=== PATIENT | female | born 1955 | race Caucasian/White ===

== ENCOUNTER 2018-08-25 11:14 | Inpatient (IN) | payer OTHER ==
[~2018-08-25] VITALS: Ht 170.2 cm; Wt 85.6 kg
[2018-08-25 11:54] LABS: BASOPHILS ABSOLUTE AUTO 0.06 K/mm3 (0.00-0.23); BASOPHILS PERCENT AUTO 1 % (0-2); EOSINOPHILS PERCENT AUTO 1 % (0-6); Hematocrit 38.2 % (33.0-51.0); Hemoglobin 12.5 g/dL (11.5-16.0); IMMATURE GRAN ABSOLUTE AUTO 0.71 K/mm3 (0.00-0.10); IMMATURE GRAN PERCENT AUTO 6 % (0-1); LYMPHOCYTES ABSOLUTE AUTO 2.73 K/mm3 (0.84-5.20); LYMPHOCYTES PERCENT AUTO 24 % (21-46); MONOCYTES ABSOLUTE AUTO 0.71 K/mm3 (0.16-1.47); MONOCYTES PERCENT AUTO 6 % (4-13); Mean Corpuscular HGB 28.5 pg (26.0-34.0); Mean Corpuscular HGB Conc 32.7 g/dL (31.5-36.5); Mean Corpuscular Volume 87 fL (80-100); Mean Platelet Volume 8.7 fL (9.1-12.4); NEUTROPHILS ABSOLUTE AUTO 7.01 K/mm3 (1.96-9.15); NEUTROPHILS PERCENT AUTO 62 % (41-73); Platelet Count 418 K/mm3 (150-400); RDW Coefficient Variation 12.2 % (11.7-14.2); RDW Standard Deviation 39.3 fL (35.1-46.3); Red Blood Cell Count 4.38 M/mm3 (3.80-5.20); White Blood Cell Count 11.32 K/mm3 (4.00-11.30)
[2018-08-25 12:11] LABS: Alanine Aminotransfer (ALT/SGP 22 U/L (12-78); Albumin, Blood 2.9 g/dL (3.4-5.0); Albumin/Globulin Ratio 0.6 (0.8-1.8); Alk Phos 152 U/L (50-136); Anion Gap 10 mmol/L (6-16); Aspartate Aminotrans (AST/SGOT 15 U/L (12-37); Bilirubin, Total 0.3 mg/dL (0.1-1.0); Blood Urea Nitrogen 11 mg/dL (8-24); Bun/Creatinine Ratio 16.9 (12.0-20.0); CO2, Blood 27 mmol/L (21-32); Calcium, Blood 8.7 mg/dL (8.5-10.1); Chloride, Blood 98 mmol/L (98-108); Creatinine, Blood 0.65 mg/dL (0.40-1.00); Globulin, Blood 4.7 g/dL (2.2-4.0); Glomerular Filtration Rate >60 (60-); Glucose, Blood 467 mg/dL (70-99); Potassium, Blood 4.5 mmol/L (3.5-5.5); Sodium, Blood 135 mmol/L (136-145); Total Protein, Blood 7.6 g/dL (6.4-8.2)
[2018-08-25 14:02] LABS: Source, Urine Clean Catch
[2018-08-25 14:04] LABS: Appearance, Urine Hazy (Clear); Bilirubin, Urine Neg (Neg); Blood, Urine 1+ (Neg); Color, Urine Yellow (P-Yellow); Glucose Qualitative, Urine 4+ (Neg); Ketones, Urine Neg (Neg); Leukocyte Esterase, Urine Neg (Neg); Nitrite, Urine Neg (Neg); Protein, Urine 2+ (Neg); Urobilinogen, Urine NORM (Normal); pH, Urine 6.5 (5.0-8.0)
[2018-08-25 14:32] LABS: Bacteria Not Seen /hpf; Red Blood Cells, Urine 0-2 /hpf (0-2); Squamous Epithelial Cells Mod /hpf (Few); White Blood Cells, Urine 0-2 /hpf (0-5)
[2018-08-25 16:45] LABS: CHOL/HDL RATIO 4.2; Cholesterol 158 mg/dL (50-200); HDL Cholesterol 38 mg/dL (>39); LDL/HDL RATIO 2.7; Low Density Lipoprotein Chol 104 mg/dL (0-110); Triglycerides 81 mg/dL (30-160); Very Low Density Lipoprot Chol 16 mg/dL (6-32)
[2018-08-26 03:40] LABS: Hemoglobin 10.7 g/dL (11.5-16.0); Mean Corpuscular HGB 28.5 pg (26.0-34.0); Mean Corpuscular HGB Conc 32.4 g/dL (31.5-36.5); Mean Corpuscular Volume 88 fL (80-100); Mean Platelet Volume 8.5 fL (9.1-12.4); Platelet Count 343 K/mm3 (150-400); RDW Coefficient Variation 12.2 % (11.7-14.2); RDW Standard Deviation 39.4 fL (35.1-46.3); Red Blood Cell Count 3.76 M/mm3 (3.80-5.20); White Blood Cell Count 11.67 K/mm3 (4.00-11.30)
[2018-08-26 04:00] LABS: Anion Gap 6 mmol/L (6-16); Blood Urea Nitrogen 7 mg/dL (8-24); Bun/Creatinine Ratio 11.2 (12.0-20.0); CO2, Blood 30 mmol/L (21-32); Calcium, Blood 8.4 mg/dL (8.5-10.1); Chloride, Blood 103 mmol/L (98-108); Creatinine, Blood 0.62 mg/dL (0.40-1.00); Glomerular Filtration Rate >60 (60-); Glucose, Blood 180 mg/dL (70-99); Potassium, Blood 4.2 mmol/L (3.5-5.5); Sodium, Blood 139 mmol/L (136-145)
[2018-08-26 04:10] LABS: BAND PERCENT MAN 2 % (0-8); BASOPHILS PERCENT MAN 0 % (0-2); EOSINOPHILS PERCENT MAN 0 % (0-6); LYMPHOCYTES PERCENT MAN 24 % (21-46); METAMYELOCYTE ABSOLUTE MAN 0.11 K/mm3 (0.00-0.00); METAMYELOCYTE PERCENT MAN 1 % (0-0); MONOCYTES ABSOLUTE MAN 0.93 K/mm3 (0.16-1.47); MONOCYTES PERCENT MAN 8 % (4-13); NEUTROPHILS ABSOLUTE MAN 7.81 K/mm3 (1.96-9.15); SEG NEUTROPHILS PERCENT MAN 65 % (41-73); TOTAL CELLS COUNTED 100
== END 2018-08-26 15:33 | disposition short-term general hospital (02) | DRG 300 ==
LOC: ER 11:14 → ICUW 15:48
PROVIDERS: Internal Medicine; Physician Assistant
DX: E11.52 Type 2 diabetes mellitus with diabetic peripheral angiopathy with gangrene (principal); I96 Gangrene, not elsewhere classified; M86.8X7 Other osteomyelitis, ankle and foot; E11.69 Type 2 diabetes mellitus with other specified complication; E11.65 Type 2 diabetes mellitus with hyperglycemia; I10 Essential (primary) hypertension; E66.9 Obesity, unspecified; Z68.30 Body mass index [BMI] 30.0-30.9, adult; Z87.891 Personal history of nicotine dependence; Z87.01 Personal history of pneumonia (recurrent); Z23 Encounter for immunization
CPT/HCPCS: 36415; 73630; 73701; 80048; 80053; 80061; 80202; 81001; 82947; 83036; 83605; 84145; 85025; 85651; 86140; 87070; 87075; 87205; 90686; 93005; 93010; 93926; 96361; 96365; 96367; 96375; 99285-25; C9113; G0008; J1170; J2185; J2405; J2543; J3010; J3370; J7030; J7120; Q9967

== ENCOUNTER 2018-09-27 08:00 | Day surgery (SDC) | payer OTHER | END 2018-09-27 23:04 | disposition home or self-care (01) | LOC: WOUND 08:00 | DX: L97.513 Non-pressure chronic ulcer of other part of right foot with necrosis of muscle (principal); I70.261 Atherosclerosis of native arteries of extremities with gangrene, right leg; I10 Essential (primary) hypertension; E11.40 Type 2 diabetes mellitus with diabetic neuropathy, unspecified; Z87.891 Personal history of nicotine dependence | CPT/HCPCS: G0463 ==

== ENCOUNTER 2018-09-30 11:12 | Day surgery (SDC) | payer OTHER | END 2018-09-30 22:43 | disposition home or self-care (01) | LOC: WOUND 11:12 | DX: L97.515 Non-pressure chronic ulcer of other part of right foot with muscle involvement without evidence of necrosis (principal); I70.261 Atherosclerosis of native arteries of extremities with gangrene, right leg; I10 Essential (primary) hypertension; E11.21 Type 2 diabetes mellitus with diabetic nephropathy; Z79.82 Long term (current) use of aspirin ==

== ENCOUNTER 2018-10-02 11:10 | Day surgery (SDC) | payer OTHER | END 2018-10-02 22:45 | disposition home or self-care (01) | LOC: WOUND 11:10 | DX: E11.621 Type 2 diabetes mellitus with foot ulcer (principal); L97.519 Non-pressure chronic ulcer of other part of right foot with unspecified severity; E11.52 Type 2 diabetes mellitus with diabetic peripheral angiopathy with gangrene; I70.261 Atherosclerosis of native arteries of extremities with gangrene, right leg; E11.21 Type 2 diabetes mellitus with diabetic nephropathy ==

== ENCOUNTER → 2018-10-02 | Outpatient (CLI) | payer OTHER ==
[2018-10-02 14:18] LABS: BASOPHILS ABSOLUTE AUTO 0.06 K/mm3 (0.00-0.23); BASOPHILS PERCENT AUTO 1 % (0-2); EOSINOPHILS ABSOLUTE AUTO 0.47 K/mm3 (0.00-0.68); EOSINOPHILS PERCENT AUTO 5 % (0-6); Hematocrit 25.4 % (33.0-51.0); Hemoglobin 7.8 g/dL (11.5-16.0); IMMATURE GRAN ABSOLUTE AUTO 0.21 K/mm3 (0.00-0.10); IMMATURE GRAN PERCENT AUTO 2 % (0-1); LYMPHOCYTES ABSOLUTE AUTO 2.78 K/mm3 (0.84-5.20); LYMPHOCYTES PERCENT AUTO 30 % (21-46); MONOCYTES ABSOLUTE AUTO 0.71 K/mm3 (0.16-1.47); MONOCYTES PERCENT AUTO 8 % (4-13); Mean Corpuscular HGB 26.4 pg (26.0-34.0); Mean Corpuscular HGB Conc 30.7 g/dL (31.5-36.5); Mean Corpuscular Volume 86 fL (80-100); Mean Platelet Volume 8.8 fL (9.1-12.4); NEUTROPHILS ABSOLUTE AUTO 5.13 K/mm3 (1.96-9.15); NEUTROPHILS PERCENT AUTO 55 % (41-73); Platelet Count 349 K/mm3 (150-400); RDW Coefficient Variation 13.9 % (11.7-14.2); RDW Standard Deviation 43.3 fL (35.1-46.3); Red Blood Cell Count 2.95 M/mm3 (3.80-5.20); White Blood Cell Count 9.36 K/mm3 (4.00-11.30)
[2018-10-02 14:34] LABS: Percent Saturation 10.8 % (15.0-50.0)
== END | disposition home or self-care (01) ==
LOC: LAB SHORT 14:09 → LAB 14:09
PROVIDERS: Hospitalist
DX: D62 Acute posthemorrhagic anemia (principal)
CPT/HCPCS: 83540; 83550; 85025

== ENCOUNTER 2018-10-07 13:53 | Day surgery (SDC) | payer OTHER | END 2018-10-07 22:38 | disposition home or self-care (01) | LOC: WOUND 13:53 | DX: I70.261 Atherosclerosis of native arteries of extremities with gangrene, right leg (principal); L97.515 Non-pressure chronic ulcer of other part of right foot with muscle involvement without evidence of necrosis; E11.21 Type 2 diabetes mellitus with diabetic nephropathy; I10 Essential (primary) hypertension; L92.8 Other granulomatous disorders of the skin and subcutaneous tissue; Z89.431 Acquired absence of right foot ==

== ENCOUNTER 2018-10-14 12:30 | Day surgery (SDC) | payer OTHER | END 2018-10-14 22:37 | disposition home or self-care (01) | LOC: WOUND 12:30 | DX: E11.621 Type 2 diabetes mellitus with foot ulcer (principal); L97.512 Non-pressure chronic ulcer of other part of right foot with fat layer exposed; I70.261 Atherosclerosis of native arteries of extremities with gangrene, right leg; E11.21 Type 2 diabetes mellitus with diabetic nephropathy | CPT/HCPCS: 87070; 87075; 87077; 87147; 87186; 87205 ==

== ENCOUNTER 2018-10-16 00:36 | Day surgery (SDC) | payer OTHER | END 2018-10-16 22:43 | disposition home or self-care (01) | LOC: WOUND 00:36 | DX: L97.515 Non-pressure chronic ulcer of other part of right foot with muscle involvement without evidence of necrosis (principal); I70.261 Atherosclerosis of native arteries of extremities with gangrene, right leg; E11.21 Type 2 diabetes mellitus with diabetic nephropathy ==

== ENCOUNTER 2018-10-18 15:00 | Day surgery (SDC) | payer OTHER | END 2018-10-18 22:56 | disposition home or self-care (01) | LOC: WOUND 15:00 | DX: I70.261 Atherosclerosis of native arteries of extremities with gangrene, right leg (principal); L97.512 Non-pressure chronic ulcer of other part of right foot with fat layer exposed; E11.21 Type 2 diabetes mellitus with diabetic nephropathy; Z89.431 Acquired absence of right foot ==

== ENCOUNTER 2018-10-21 07:50 | Day surgery (SDC) | payer OTHER | END 2018-10-21 22:57 | disposition home or self-care (01) | LOC: WOUND 07:50 | DX: L97.515 Non-pressure chronic ulcer of other part of right foot with muscle involvement without evidence of necrosis (principal); I70.261 Atherosclerosis of native arteries of extremities with gangrene, right leg; E11.21 Type 2 diabetes mellitus with diabetic nephropathy; Z79.82 Long term (current) use of aspirin ==

== ENCOUNTER 2018-10-23 08:01 | Day surgery (SDC) | payer OTHER | END 2018-10-23 22:37 | disposition home or self-care (01) | LOC: WOUND 08:01 | DX: L97.515 Non-pressure chronic ulcer of other part of right foot with muscle involvement without evidence of necrosis (principal); I70.261 Atherosclerosis of native arteries of extremities with gangrene, right leg; E11.21 Type 2 diabetes mellitus with diabetic nephropathy ==

== ENCOUNTER 2018-10-25 10:45 | Day surgery (SDC) | payer OTHER | END 2018-10-25 23:12 | disposition home or self-care (01) | LOC: WOUND 10:45 | DX: L97.519 Non-pressure chronic ulcer of other part of right foot with unspecified severity (principal); I70.261 Atherosclerosis of native arteries of extremities with gangrene, right leg; E11.21 Type 2 diabetes mellitus with diabetic nephropathy ==

== ENCOUNTER 2018-11-01 10:45 | Day surgery (SDC) | payer OTHER | END 2018-11-01 12:00 | disposition home or self-care (01) | LOC: WOUND 10:45 | DX: T81.89XA Other complications of procedures, not elsewhere classified, initial encounter (principal); E11.621 Type 2 diabetes mellitus with foot ulcer; E11.52 Type 2 diabetes mellitus with diabetic peripheral angiopathy with gangrene; E11.21 Type 2 diabetes mellitus with diabetic nephropathy; E11.40 Type 2 diabetes mellitus with diabetic neuropathy, unspecified; L97.515 Non-pressure chronic ulcer of other part of right foot with muscle involvement without evidence of necrosis; I70.261 Atherosclerosis of native arteries of extremities with gangrene, right leg; I10 Essential (primary) hypertension; Z89.431 Acquired absence of right foot ==

== ENCOUNTER 2018-11-11 00:43 | Day surgery (SDC) | payer OTHER | END 2018-11-11 22:43 | disposition home or self-care (01) | LOC: WOUND 00:43 | DX: L97.515 Non-pressure chronic ulcer of other part of right foot with muscle involvement without evidence of necrosis (principal); I70.261 Atherosclerosis of native arteries of extremities with gangrene, right leg; E11.21 Type 2 diabetes mellitus with diabetic nephropathy; Z79.82 Long term (current) use of aspirin ==

== ENCOUNTER 2018-11-13 00:15 | Day surgery (SDC) | payer OTHER | END 2018-11-13 22:43 | disposition home or self-care (01) | LOC: WOUND 00:15 | DX: T81.89XA Other complications of procedures, not elsewhere classified, initial encounter (principal); E11.621 Type 2 diabetes mellitus with foot ulcer; L97.512 Non-pressure chronic ulcer of other part of right foot with fat layer exposed; E11.21 Type 2 diabetes mellitus with diabetic nephropathy; E11.40 Type 2 diabetes mellitus with diabetic neuropathy, unspecified; I10 Essential (primary) hypertension; I70.261 Atherosclerosis of native arteries of extremities with gangrene, right leg; M86.9 Osteomyelitis, unspecified; Z89.431 Acquired absence of right foot ==

== ENCOUNTER 2018-11-15 00:51 | Day surgery (SDC) | payer OTHER | END 2018-11-15 12:00 | disposition home or self-care (01) | LOC: WOUND 00:51 | DX: T81.89XA Other complications of procedures, not elsewhere classified, initial encounter (principal); E11.621 Type 2 diabetes mellitus with foot ulcer; L97.522 Non-pressure chronic ulcer of other part of left foot with fat layer exposed; E11.52 Type 2 diabetes mellitus with diabetic peripheral angiopathy with gangrene; E11.69 Type 2 diabetes mellitus with other specified complication; E11.40 Type 2 diabetes mellitus with diabetic neuropathy, unspecified; I70.261 Atherosclerosis of native arteries of extremities with gangrene, right leg; I10 Essential (primary) hypertension ==

== ENCOUNTER 2018-11-18 08:01 | Day surgery (SDC) | payer OTHER | END 2018-11-18 22:39 | disposition home or self-care (01) | LOC: WOUND 08:01 | DX: T81.89XA Other complications of procedures, not elsewhere classified, initial encounter (principal); E11.621 Type 2 diabetes mellitus with foot ulcer; E11.52 Type 2 diabetes mellitus with diabetic peripheral angiopathy with gangrene; I70.261 Atherosclerosis of native arteries of extremities with gangrene, right leg; L97.515 Non-pressure chronic ulcer of other part of right foot with muscle involvement without evidence of necrosis; E11.21 Type 2 diabetes mellitus with diabetic nephropathy; E11.40 Type 2 diabetes mellitus with diabetic neuropathy, unspecified; I10 Essential (primary) hypertension ==

== ENCOUNTER 2018-11-22 00:10 | Day surgery (SDC) | payer OTHER | END 2018-11-22 12:00 | disposition home or self-care (01) | LOC: WOUND 00:10 | DX: T81.49XA Infection following a procedure, other surgical site, initial encounter (principal); E11.621 Type 2 diabetes mellitus with foot ulcer; E11.52 Type 2 diabetes mellitus with diabetic peripheral angiopathy with gangrene; I70.261 Atherosclerosis of native arteries of extremities with gangrene, right leg; L97.815 Non-pressure chronic ulcer of other part of right lower leg with muscle involvement without evidence of necrosis; E11.40 Type 2 diabetes mellitus with diabetic neuropathy, unspecified; I10 Essential (primary) hypertension; Z89.431 Acquired absence of right foot ==

== ENCOUNTER 2018-11-25 10:08 | Day surgery (SDC) | payer OTHER | END 2018-11-25 22:44 | disposition home or self-care (01) | LOC: WOUND 10:08 | DX: T81.49XA Infection following a procedure, other surgical site, initial encounter (principal); E11.621 Type 2 diabetes mellitus with foot ulcer; E11.52 Type 2 diabetes mellitus with diabetic peripheral angiopathy with gangrene; I70.261 Atherosclerosis of native arteries of extremities with gangrene, right leg; I77.1 Stricture of artery; L97.515 Non-pressure chronic ulcer of other part of right foot with muscle involvement without evidence of necrosis; E11.21 Type 2 diabetes mellitus with diabetic nephropathy; I10 Essential (primary) hypertension ==

== ENCOUNTER 2018-11-27 00:10 | Day surgery (SDC) | payer OTHER | END 2018-11-27 22:38 | disposition home or self-care (01) | LOC: WOUND 00:10 | DX: T81.49XA Infection following a procedure, other surgical site, initial encounter (principal); E11.621 Type 2 diabetes mellitus with foot ulcer; L97.515 Non-pressure chronic ulcer of other part of right foot with muscle involvement without evidence of necrosis; E11.51 Type 2 diabetes mellitus with diabetic peripheral angiopathy without gangrene; I70.261 Atherosclerosis of native arteries of extremities with gangrene, right leg; E11.21 Type 2 diabetes mellitus with diabetic nephropathy; E11.69 Type 2 diabetes mellitus with other specified complication; M86.9 Osteomyelitis, unspecified; I10 Essential (primary) hypertension | CPT/HCPCS: G0463 ==

== ENCOUNTER 2018-11-29 00:23 | Day surgery (SDC) | payer OTHER | END 2018-11-29 23:09 | disposition home or self-care (01) | LOC: WOUND 00:23 | DX: T87.53 Necrosis of amputation stump, right lower extremity (principal); I77.1 Stricture of artery; L97.515 Non-pressure chronic ulcer of other part of right foot with muscle involvement without evidence of necrosis; I10 Essential (primary) hypertension; I73.9 Peripheral vascular disease, unspecified; E11.40 Type 2 diabetes mellitus with diabetic neuropathy, unspecified | CPT/HCPCS: G0463 ==

== ENCOUNTER 2018-12-02 00:12 | Day surgery (SDC) | payer OTHER | END 2018-12-02 23:03 | disposition home or self-care (01) | LOC: WOUND 00:12 | DX: T87.43 Infection of amputation stump, right lower extremity (principal); I77.2 Rupture of artery; E11.40 Type 2 diabetes mellitus with diabetic neuropathy, unspecified; I10 Essential (primary) hypertension; I73.9 Peripheral vascular disease, unspecified | CPT/HCPCS: G0463 ==

== ENCOUNTER 2018-12-09 14:35 | Day surgery (SDC) | payer OTHER | END 2018-12-09 22:43 | disposition home or self-care (01) | LOC: WOUND 14:35 | PROC: 0JBQ0ZZ Excision of Right Foot Subcutaneous Tissue and Fascia, Open Approach (ICD-10-PCS; principal; 2018-12-09) | DX: T87.43 Infection of amputation stump, right lower extremity (principal); T87.53 Necrosis of amputation stump, right lower extremity; L97.512 Non-pressure chronic ulcer of other part of right foot with fat layer exposed; E11.21 Type 2 diabetes mellitus with diabetic nephropathy; I70.261 Atherosclerosis of native arteries of extremities with gangrene, right leg; I10 Essential (primary) hypertension; Z95.1 Presence of aortocoronary bypass graft ==

== ENCOUNTER 2018-12-16 15:10 | Day surgery (SDC) | payer OTHER | END 2018-12-16 22:43 | disposition home or self-care (01) | LOC: WOUND 15:10 | DX: T87.53 Necrosis of amputation stump, right lower extremity (principal); E11.621 Type 2 diabetes mellitus with foot ulcer; L97.515 Non-pressure chronic ulcer of other part of right foot with muscle involvement without evidence of necrosis; E11.21 Type 2 diabetes mellitus with diabetic nephropathy; E11.52 Type 2 diabetes mellitus with diabetic peripheral angiopathy with gangrene; I70.261 Atherosclerosis of native arteries of extremities with gangrene, right leg; I10 Essential (primary) hypertension | CPT/HCPCS: G0463 ==

== ENCOUNTER 2018-12-23 15:09 | Day surgery (SDC) | payer OTHER | END 2018-12-23 22:44 | disposition home or self-care (01) | LOC: WOUND 15:09 | DX: T81.49XA Infection following a procedure, other surgical site, initial encounter (principal); E11.621 Type 2 diabetes mellitus with foot ulcer; L97.515 Non-pressure chronic ulcer of other part of right foot with muscle involvement without evidence of necrosis; I70.261 Atherosclerosis of native arteries of extremities with gangrene, right leg; I10 Essential (primary) hypertension; E11.21 Type 2 diabetes mellitus with diabetic nephropathy ==

== ENCOUNTER 2018-12-30 15:05 | Day surgery (SDC) | payer OTHER | END 2018-12-30 23:02 | disposition home or self-care (01) | LOC: WOUND 15:05 | DX: T87.53 Necrosis of amputation stump, right lower extremity (principal); E11.622 Type 2 diabetes mellitus with other skin ulcer; E11.21 Type 2 diabetes mellitus with diabetic nephropathy; E11.52 Type 2 diabetes mellitus with diabetic peripheral angiopathy with gangrene; I70.261 Atherosclerosis of native arteries of extremities with gangrene, right leg; I10 Essential (primary) hypertension | CPT/HCPCS: G0463 ==

== ENCOUNTER 2019-01-10 00:26 | Day surgery (SDC) | payer OTHER | END 2019-01-11 22:39 | disposition home or self-care (01) | LOC: WOUND 00:26 | DX: T87.53 Necrosis of amputation stump, right lower extremity (principal); E11.621 Type 2 diabetes mellitus with foot ulcer; L97.512 Non-pressure chronic ulcer of other part of right foot with fat layer exposed; I10 Essential (primary) hypertension; E11.51 Type 2 diabetes mellitus with diabetic peripheral angiopathy without gangrene; E11.40 Type 2 diabetes mellitus with diabetic neuropathy, unspecified; E11.69 Type 2 diabetes mellitus with other specified complication; M86.9 Osteomyelitis, unspecified ==

== ENCOUNTER 2019-01-20 07:33 | Day surgery (SDC) | payer OTHER | END 2019-01-20 22:36 | disposition home or self-care (01) | LOC: WOUND 07:33 | DX: T87.53 Necrosis of amputation stump, right lower extremity (principal); E11.622 Type 2 diabetes mellitus with other skin ulcer; L97.519 Non-pressure chronic ulcer of other part of right foot with unspecified severity; E11.52 Type 2 diabetes mellitus with diabetic peripheral angiopathy with gangrene; I70.261 Atherosclerosis of native arteries of extremities with gangrene, right leg; E11.40 Type 2 diabetes mellitus with diabetic neuropathy, unspecified; I10 Essential (primary) hypertension | CPT/HCPCS: G0463 ==

== ENCOUNTER → 2019-05-19 | Outpatient (CLI) | payer OTHER ==
[2019-05-19 18:16] LABS: Hematocrit 31.2 % (33.0-51.0); Mean Corpuscular HGB Conc 32.1 g/dL (31.5-36.5); Mean Corpuscular Volume 84 fL (80-100); Platelet Count 268 K/mm3 (150-400); RDW Coefficient Variation 13.4 % (11.7-14.2); RDW Standard Deviation 40.7 fL (35.1-46.3); Red Blood Cell Count 3.71 M/mm3 (3.80-5.20); White Blood Cell Count 10.07 K/mm3 (4.00-11.30)
[2019-05-19 18:58] LABS: BAND PERCENT MAN 1 % (0-8); BASOPHILS PERCENT MAN 2 % (0-2); EOSINOPHILS PERCENT MAN 2 % (0-6); LYMPHOCYTES ABSOLUTE MAN 3.12 K/mm3 (0.84-5.20); LYMPHOCYTES PERCENT MAN 31 % (21-46); MONOCYTES PERCENT MAN 5 % (4-13); MYELOCYTE PERCENT MAN 1 % (0-0); NEUTROPHILS ABSOLUTE MAN 5.94 K/mm3 (1.96-9.15); SEG NEUTROPHILS PERCENT MAN 58 % (41-73); TOTAL CELLS COUNTED 100
[2019-05-19 20:56] LABS: Albumin, Blood 3.7 g/dL (3.4-5.0); Bilirubin, Total 0.3 mg/dL (0.1-1.0); Bun/Creatinine Ratio 26.1 (12.0-20.0); Calcium, Blood 9.4 mg/dL (8.5-10.1); Creatinine, Blood 1.19 mg/dL (0.40-1.00); Globulin, Blood 3.8 g/dL (2.2-4.0); Potassium, Blood 4.5 mmol/L (3.5-5.5); Total Protein, Blood 7.5 g/dL (6.4-8.2)
== END | disposition home or self-care (01) ==
LOC: LAB 17:45 → LAB SHORT 17:45
PROVIDERS: Hospitalist
DX: I10 Essential (primary) hypertension (principal)
CPT/HCPCS: 80053; 85025

== ENCOUNTER 2020-08-07 16:48 | Inpatient (IN) | payer OTHER, MEDICARE ==
[~2020-08-07] VITALS: Ht 170.2 cm; Wt 95.2 kg
[2020-08-07 17:29] LABS: BASOPHILS ABSOLUTE AUTO 0.11 K/mm3 (0.00-0.23); BASOPHILS PERCENT AUTO 1 % (0-2); EOSINOPHILS PERCENT AUTO 0 % (0-6); Hematocrit 26.5 % (33.0-51.0); Hemoglobin 7.7 g/dL (11.5-16.0); IMMATURE GRAN PERCENT AUTO 9 % (0-1); LYMPHOCYTES ABSOLUTE AUTO 2.68 K/mm3 (0.84-5.20); LYMPHOCYTES PERCENT AUTO 12 % (21-46); MONOCYTES ABSOLUTE AUTO 1.79 K/mm3 (0.16-1.47); MONOCYTES PERCENT AUTO 8 % (4-13); Mean Corpuscular HGB 22.3 pg (26.0-34.0); Mean Corpuscular HGB Conc 29.1 g/dL (31.5-36.5); Mean Corpuscular Volume 77 fL (80-100); Mean Platelet Volume 8.5 fL (9.1-12.4); NEUTROPHILS ABSOLUTE AUTO 15.81 K/mm3 (1.96-9.15); NEUTROPHILS PERCENT AUTO 70 % (41-73); Platelet Count 341 K/mm3 (150-400); RDW Coefficient Variation 15.6 % (11.7-14.2); RDW Standard Deviation 43.5 fL (35.1-46.3); Red Blood Cell Count 3.46 M/mm3 (3.80-5.20); White Blood Cell Count 22.49 K/mm3 (4.00-11.30)
[2020-08-07 17:37] LABS: C-REACTIVE PROTEIN, EXT RANGE 16.2 mg/dL (0.000-0.300)
[2020-08-07 17:40] LABS: Albumin, Blood 2.1 g/dL (3.4-5.0); Albumin/Globulin Ratio 0.3 (0.8-1.8); Bilirubin, Total 0.6 mg/dL (0.1-1.0); Bun/Creatinine Ratio 24.5 (12.0-20.0); Creatinine, Blood 3.83 mg/dL (0.40-1.00); Globulin, Blood 6.4 g/dL (2.2-4.0); Potassium, Blood 5.7 mmol/L (3.5-5.5); Total Protein, Blood 8.5 g/dL (6.4-8.2)
[2020-08-07] MEDS ORDERED: AMLODIPINE BESYL5 MG PO (17:52)
[2020-08-07] MEDS ORDERED: LISI20 PO (17:52)
[2020-08-07] MEDS ORDERED: METOPROLOL TAR100 M1 PO (17:53)
[2020-08-07] MEDS ORDERED: ATORVASTATIN CA20 MG PO (17:53)
[2020-08-07] MEDS ORDERED: NOVOLOG MI100 UNIT/2 SC ×2 (17:54)
[2020-08-07 18:07] LABS: BAND PERCENT MAN 5 % (0-8); BASOPHILS PERCENT MAN 0 % (0-2); EOSINOPHILS PERCENT MAN 0 % (0-6); LYMPHOCYTES ABSOLUTE MAN 2.24 K/mm3 (0.84-5.20); LYMPHOCYTES PERCENT MAN 10 % (21-46); MONOCYTES ABSOLUTE MAN 1.12 K/mm3 (0.16-1.47); MONOCYTES PERCENT MAN 5 % (4-13); NEUTROPHILS ABSOLUTE MAN 19.11 K/mm3 (1.96-9.15); SEG NEUTROPHILS PERCENT MAN 80 % (41-73); TOTAL CELLS COUNTED 100
[2020-08-07 21:25] LABS: Percent Saturation 8.3 % (15.0-50.0)
[2020-08-08 04:12] LABS: Hemoglobin 6.4 g/dL (11.5-16.0); Mean Corpuscular HGB 22.1 pg (26.0-34.0); Mean Corpuscular HGB Conc 29.1 g/dL (31.5-36.5); Mean Corpuscular Volume 76 fL (80-100); Mean Platelet Volume 8.5 fL (9.1-12.4); Platelet Count 290 K/mm3 (150-400); RDW Coefficient Variation 15.7 % (11.7-14.2); RDW Standard Deviation 44.1 fL (35.1-46.3); Red Blood Cell Count 2.89 M/mm3 (3.80-5.20); White Blood Cell Count 19.03 K/mm3 (4.00-11.30)
[2020-08-08 04:28] LABS: Bun/Creatinine Ratio 25.2 (12.0-20.0); Calcium, Blood 8.4 mg/dL (8.5-10.1); Creatinine, Blood 3.73 mg/dL (0.40-1.00); Potassium, Blood 5.4 mmol/L (3.5-5.5)
[2020-08-08 05:14] LABS: BAND PERCENT MAN 3 % (0-8); BASOPHILS PERCENT MAN 0 % (0-2); EOSINOPHILS PERCENT MAN 0 % (0-6); LYMPHOCYTES ABSOLUTE MAN 3.42 K/mm3 (0.84-5.20); LYMPHOCYTES PERCENT MAN 18 % (21-46); MONOCYTES ABSOLUTE MAN 1.71 K/mm3 (0.16-1.47); MONOCYTES PERCENT MAN 9 % (4-13); MYELOCYTE ABSOLUTE MAN 0.19 K/mm3 (0.00-0.00); MYELOCYTE PERCENT MAN 1 % (0-0); SEG NEUTROPHILS PERCENT MAN 69 % (41-73); TOTAL CELLS COUNTED 100
--- NOTE | 2020-08-08 05:50 | NUR ---
SHIFT SUMMARY PT CAME FROM ED FOR BLE CELLULITIS AND NONSTAGABLE NECROTIC ULCERS ON BILAT HEELS. PT STATES SHE DOES NOT AMBULATE AROUND AT HOME. PT IS ALERT AND ORIENTED, ABLE TO MAKE NEEDS KNOWN. PT SLEPT WELL THROUGH NIGHT. VSS. SATS >90% ON RA. TELE NSR. ATTENDS IN PLACE. IVF RUNNING AT 100ML/HR. PICTURES TAKEN OF WOUNDS - SEE CHART. CELLULITIS CULTURES SENT DOWN TO LAB - PENDING RESULTS. NO C/O PAIN. MORNING HGB 6.4 - MD NOTIFIED - INSTRUCTED TO GIVE 1 PRBC. PENDING TYPE AND SCREEN. CALL LIGHT WITHIN REACH, BED IN LOWEST POSITION. WILL CONTINUE TO MONITOR.
[2020-08-08 14:54] LABS: Influenza A, PCR Negative (NEGATIVE); Influenza B, PCR Negative (NEGATIVE); Resp Syncytial Virus, PCR Negative (NEGATIVE); SARS-Cov-2 (COVID-19) PCR, MMC Negative (NEGATIVE)
[2020-08-08 15:50] LABS: Hematocrit 26.8 % (33.0-51.0)
[2020-08-08 16:06] LABS: Calcium, Blood 8.3 mg/dL (8.5-10.1); Creatinine, Blood 3.3 mg/dL (0.40-1.00); Potassium, Blood 5.6 mmol/L (3.5-5.5)
--- NOTE | 2020-08-08 18:44 | NUR ---
SHIFT SUMMARY PT TRANSFERRED FROM PCU AT 1600. PT A&OX4, RA/VSS, DENIES PAIN, DENIES N&V, VALERIE PO. DR BRINK IN TO SEE PATIENT FOR ORTHO CONSULT. HOSPITALIST IN TO SEE PT TO DISCUSS PLAN. NPO AT MIDNIGHT. HEELS FLOATED. REPOSITIONS WELL; ROLLS WELL FOR ATTENDS CHANGE; INCONTINENT AT BASELINE - DENIES ABILITY TO FEEL NEED TO URINATE OR HAVE BOWEL MOVEMENT. PICTURE OF ULCER BETWEEN BUTTOCKS IN CHART, ALONG WITH OTHER PICS TAKEN BY PCU. WILL REPORT TO ONCOMING NOC RN.
--- NOTE | 2020-08-08 19:54 | NUR ---
PT STATES THAT SHE PUT ON A DEPENDS FOR THE FIRST TIME IN HER LIFE IN PREPARATION FOR THE AMBULANCE RIDE AND HAD NOT HAD DIFFICULTIES WITH INCONTINENCE PRIOR TO THE LAST FEW DAYS. SHE STATES THAT SHE HAS HAD SOME FALLS AT HOME AND WAS "TOO STUBBORN" TO CALL ANYONE FOR HELP. SHE STATES THAT SHE WOULD CRAWL TO A PLACE WHERE SHE COULD CRAWL UP ON FURNITURE. SHE REPORTS THAT SHE WALKS WITH A CANE AT BASELINE BUT HAS BEEN TOO WEAK AND SHAKY THE LAST FEW DAYS. SHE ALSO STATED THAT HER DAUGHTER IS HERE FROM [facility] AND THAT ALL OF HER FAMILY LIVES IN [place]. SHE REPORTS SHE HAS BEEN WORKING AT HOME FOR THE [employer] AND HAD ALREADY MADE PLANS TO RETIRE AT THE END OF THE YEAR THEN MOVE TO [place] TO BE CLOSE TO FAMILY. HOWEVER, SHE ALSO STATED THAT SHE IS NOT SURE SHE WANTS TO MOVE AT THIS TIME. SHE WAS ENCOURAGED TO CALL WHEN SHE FEELS ANY SENSATION TO VOID TO ALLOW STAFF TO ASSIST HER WITH A BEDPAN. SHE DENIED THE NEED FOR PAIN MEDICATION AT THIS ITGA.
[2020-08-09 02:57] LABS: Stool Occult Blood Guaiac 1 Neg (Neg)
--- NOTE | 2020-08-09 04:09 | NUR ---
SHIFT SUMMARY: JINNY IS A&OX4. VSS, NO ACUTE EVENTS OVERNIGHT. SHE HAS DENIED THE NEED FOR PAIN MEDICATION STATING THAT IT ONLY HURTS WHEN SHE MOVES. SHE IS INCONTINENT OF BLADDER, BUT DOES OCCASIONALLY CALL FOR TOILETING ASSISTANCE. POWERGLIDE TO CIRA PATENT, IV TO R WRIST PATENT. MEPLIEX TO COCCYX CHANGED THIS MORNING. SHE IS ABLE TO MAKE HER NEEDS KNOWN. SHE WAS ENCOURAGED TO COMMUNICATE WITH STAFF TO EXPRESS HER NEEDS. SHE WAS MADE NPO AT MIDNIGHT. SHE IS LYING IN BED WITH HER CALL LIGHT IN REACH. WILL REPORT TO DAY SHIFT RN.
[2020-08-09 11:31] LABS: Hematocrit 24.7 % (33.0-51.0); Hemoglobin 7.2 g/dL (11.5-16.0); Mean Corpuscular HGB 23.2 pg (26.0-34.0); Mean Corpuscular HGB Conc 29.1 g/dL (31.5-36.5); Mean Corpuscular Volume 79 fL (80-100); Mean Platelet Volume 8.7 fL (9.1-12.4); Platelet Count 274 K/mm3 (150-400); RDW Coefficient Variation 16.6 % (11.7-14.2); RDW Standard Deviation 47.4 fL (35.1-46.3); Red Blood Cell Count 3.11 M/mm3 (3.80-5.20)
[2020-08-09 11:36] LABS: Bun/Creatinine Ratio 28.3 (12.0-20.0); Calcium, Blood 8.3 mg/dL (8.5-10.1); Creatinine, Blood 2.69 mg/dL (0.40-1.00); Potassium, Blood 5.6 mmol/L (3.5-5.5)
[2020-08-09 12:19] LABS: BAND PERCENT MAN 1 % (0-8); BASOPHILS ABSOLUTE MAN 0.15 K/mm3 (0.00-0.23); BASOPHILS PERCENT MAN 1 % (0-2); EOSINOPHILS PERCENT MAN 2 % (0-6); LYMPHOCYTES ABSOLUTE MAN 2.86 K/mm3 (0.84-5.20); LYMPHOCYTES PERCENT MAN 19 % (21-46); METAMYELOCYTE ABSOLUTE MAN 0.15 K/mm3 (0.00-0.00); METAMYELOCYTE PERCENT MAN 1 % (0-0); MONOCYTES PERCENT MAN 2 % (4-13); MYELOCYTE ABSOLUTE MAN 0.45 K/mm3 (0.00-0.00); MYELOCYTE PERCENT MAN 3 % (0-0); NEUTROPHILS ABSOLUTE MAN 10.87 K/mm3 (1.96-9.15); SEG NEUTROPHILS PERCENT MAN 71 % (41-73); TOTAL CELLS COUNTED 100
--- NOTE | 2020-08-09 12:42 | NUR ---
SPOKE WITH DR. CHATMAN AT ABOUT 10:20 CONCERNING PT HGB AND POTASSIUM. SEE NEW ORDERS FOR CBC AND BMP. DR. OTERO MADE AWARE OF NEW ORDERS WELL. WILL CTM
--- NOTE | 2020-08-09 18:21 | NUR ---
SUMMARY: PT ADMITTED FOR BLE CELLULITIS. PT A/O, VSS TODAY. SURGERY POSTPONED TODAY DUE TO POTASSIUM LEVEL AND HGB. DR. OTERO AND DR. CHATMAN HAVE BEEN IN COMMUNICATION. SEE NEW ORDERS TO CORRECT. PLAN FOR NPO AT 0000 AND FOR SURGERY TOMORROW. NO ACUTE SAFETY CONCERNS, WILL PASS REPORT TO NOC RN
--- NOTE | 2020-08-09 19:19 | NUR ---
DR. CHATMAN ROUNDING AT THIS TIME. NO NEW ORDERS AT THIS TIME.
[2020-08-09 21:35] LABS: Bun/Creatinine Ratio 29.4 (12.0-20.0); Calcium, Blood 8.4 mg/dL (8.5-10.1); Creatinine, Blood 2.31 mg/dL (0.40-1.00); Potassium, Blood 5.4 mmol/L (3.5-5.5)
--- NOTE | 2020-08-10 05:16 | NUR ---
SHIFT SUMMARY PT A/OX4. 1 UNIT RBC,IVF AND ABX ADMINISTERED PER ORDERS. BLE WOUNDS OPEN TO AIR PER DR. CORTÉS; LEGS WEEPING CLEAR/SS FLUID. AIR CHUCKS AND BEDDING CHANGED X 2 R/T DRAINAGE. BLE ELEVATED ON PILLOWS. PT REPOSITIONED TOLERATED. INCONT OF VOIDING DURING NIGHT, ATTENDS CHANGED PRN. MEPILEX TO COCCYX CHANGED, OLDER ULCER WITH SMALL AMOUT OF YELLOW DRAINAGE NOTED. PAIN MANAGED WITH 25MCG FENT. NPO SINCE MIDNIGHT. PLAN FOR SURGERY TODAY. PT CURRENTLY RESTING IN BED WITH EYES CLOSED AND CALL LIGHT IN REACH. WILL CONT TO MONITOR AND GIVE REPORT TO ONCOMING DAY RN.
[2020-08-10 06:01] LABS: Hematocrit 26.2 % (33.0-51.0); Hemoglobin 7.7 g/dL (11.5-16.0)
--- NOTE | 2020-08-10 09:41 | NUR ---
SPOKE WITH DR OTERO AT 0820 CONCERNING ULCER AT PT'S COCCYX. DR. OTERO IN ROOM WITH THIS RN TO ASSESS ULCER. MEPILEX AT COCCYX CHANGED AT THIS TIME. PICTURES ARE IN PT'S CHART. SPOKE WITH DR. CHATMAN CONCERNING PT'S HGB OF 7.7, PT IS STABLE. SEE NEW ORDERS FOR 1 UNIT OF BLOOD TO BE TRANSFUSED.
[2020-08-10 11:14] LABS: Bun/Creatinine Ratio 30.3 (12.0-20.0); Calcium, Blood 8.7 mg/dL (8.5-10.1); Creatinine, Blood 2.01 mg/dL (0.40-1.00); Potassium, Blood 5.5 mmol/L (3.5-5.5)
--- NOTE | 2020-08-10 12:11 | NUR ---
DR. ALBERT HERE TO CONSULT ON WOUND ON PTS BUTTOCKS PT AGREED TO DEBRIDEMENT AFTER BILATERAL BTK AMPUTATION
--- NOTE | 2020-08-10 12:17 | NUR ---
SAFETY AND HEALTH MANAGER HERE TO TAKE PT TO PREOP AT ABOUT 1145. SAFETY AND HEALTH MANAGER MADE AWARE THAT NEXT VS FOR BLOOD IS DUE AT 1155, PT LEFT UNIT WITH BLOOD TRANSFUSING.
--- NOTE | 2020-08-10 13:17 | NUR ---
08/10/20 1317 Rosamaria Angelo DUAL CASE, DR. ALBERT TO DEBRIDE COCCYX WOUND AND DR. CHATMAN TO FOLLOW WITH BILATERAL BKA'S.B DR. ALBERT CASE START AT 1310 WITH TIME OUT PERFORMED PRIOR TO START OF CASE.
--- NOTE | 2020-08-10 16:45 | NUR ---
POST OP REPORT RECIEVED FROM CHRISTIAN, PERSONAL COMPUTER SPECIALIST
[2020-08-10 16:49] LABS: Hematocrit 27.7 % (33.0-51.0); Hemoglobin 8.1 g/dL (11.5-16.0)
--- NOTE | 2020-08-10 17:23 | NUR ---
POST OP: PT TO UNIT AT ABOUT 1650 UPON ASSESSMENT, PT IS A/O SOMEWHAT TEARFUL AND SAD DUE TO SURGERY. HTN NOTED, PT REPORTS VERY PAINFUL 10/10 RATING. PT MEDICATED PER EMAR. WILL CTM BP, ALL OTHER VSS. STUMP SOCKS TO BILAT LEGS ARE CDI. PT REPORTS "I DIDN'T THINK IT COULD HURT THIS BAD, THIS IS OVER THE TOP". GIVEN TRAMADOL AND 25MCG FENTANYAL, WILL CTM AND CALL DR. OTERO IF NEEDED FOR DIFFERENT PAIN MED ORDERS. PT ABLE TO TAKE IN SOME ICE CHIPS AND CRACKERS, NO NAUSEA
--- NOTE | 2020-08-10 18:27 | NUR ---
UNIT OF BLOOD FINISHED TRANSFUSING IN THE OR, SEE OR NOTES. DR. OTERO SAW PT POST OP, SEE NEW PAIN MED ORDERS.
--- NOTE | 2020-08-11 05:25 | NUR ---
SHIFT SUMMARY: PT POD#1 FOR BILATERAL BKA'S. BILAT STUMPS ELEVATED WITH STUMP SOCKS IN PLACE. PT VERY PAINFUL IN BEGINNING OF SHIFT. NEW PAIN MEDICATION ORDERS OBTAINED AND PT NOW RATING PAIN 3/10 ON PAIN SCALE. PT TEARFUL AT TIMES, NEEDED ENC AND SUPPORT. FLUIDS AND ABX INFUSING PER EMAR. MEPILEX DRESSING TO COCCYX C/D/I. VS WNL. SR PER DENTAL ASSOCIATE.
[2020-08-11 08:03] LABS: Hematocrit 23.5 % (33.0-51.0); Hemoglobin 7.3 g/dL (11.5-16.0); Mean Corpuscular HGB 25.1 pg (26.0-34.0); Mean Corpuscular HGB Conc 31.1 g/dL (31.5-36.5); Mean Corpuscular Volume 81 fL (80-100); Mean Platelet Volume 8.7 fL (9.1-12.4); Platelet Count 225 K/mm3 (150-400); RDW Coefficient Variation 17.8 % (11.7-14.2); RDW Standard Deviation 51.8 fL (35.1-46.3); Red Blood Cell Count 2.91 M/mm3 (3.80-5.20); White Blood Cell Count 16.01 K/mm3 (4.00-11.30)
[2020-08-11 08:20] LABS: Bun/Creatinine Ratio 30.8 (12.0-20.0); Calcium, Blood 8.4 mg/dL (8.5-10.1); Creatinine, Blood 1.98 mg/dL (0.40-1.00)
[2020-08-11 08:28] LABS: Potassium, Blood 6.5 mmol/L (3.5-5.5)
[2020-08-11 13:23] LABS: Bun/Creatinine Ratio 31.8 (12.0-20.0); Calcium, Blood 9.2 mg/dL (8.5-10.1); Creatinine, Blood 1.98 mg/dL (0.40-1.00); Potassium, Blood 6.4 mmol/L (3.5-5.5)
--- NOTE | 2020-08-11 13:32 | NUR ---
1230 DR ALBERT HERE AND CHANGED DRESSING TO COCCYX. WOUND BED PACKED BY DR ALBERT WITH ONE SALINE MOISTENED 4X4 GAUZE AND MEPILEX PLACED TO COCCYX. SMALL AMOUNT ODOROUS SEROUS DRAINAGE AT WOUND SITE. DR ALBERT REQUESTED AIR MATTRESS FOR THIS PATIENT AND IRINEO ONEILL RN WILL FOLLOW UP FOR AIR MATTRESS
--- NOTE | 2020-08-11 17:27 | NUR ---
Per RN request, I met with Sally to offer theraputic listening and drug and alcohol counsellor. She was open and talkative and appears to be processing the loss of her mobility and independance. She has recently retired and "this" event has dramatically changed her plans. Sally was tearful at times, but would deflect by telling me funny stories from her life and explained her life philosophies. We had an easy rapport and she appeared to enjoy being heard, understood, and affirmed. She is non-bahai. Sally has strong family support, but they are in [facility]. She plans to move there soon. Pain appears under control and she was complimentary of nursing. She also appears to be appropriately grieving this loss. I offered a few suggestions and encouraged self-reflection/processing. I will remain avalable.
[2020-08-11 17:30] LABS: Bun/Creatinine Ratio 31.1 (12.0-20.0); Calcium, Blood 8.9 mg/dL (8.5-10.1); Creatinine, Blood 1.96 mg/dL (0.40-1.00); Potassium, Blood 5.9 mmol/L (3.5-5.5)
--- NOTE | 2020-08-11 19:35 | NUR ---
SUMMARY PT REPORTS HAS EPISODES OF SUDDEN SEVERE PAIN AND AT TIMES REPORTS SHE HAS VERY LITTLE PAIN TO BLE. PT TEARFUL AT TIMES AND AT TIMES JOKING ABOUT HER MISSING LEGS. PTS DAUGHTER HERE TO VISIT.BLE DRESSINGS DRY AND INTACT. MEPILEX IN PLACE TO COCCYX. PT POSITIONED ON PRESSURE CUSHION THAT WAS OBTAINED FROM PT TO KEEP PRESSURE OFF OF COCCYX AREA
[2020-08-12 06:08] LABS: Hematocrit 21.8 % (33.0-51.0); Hemoglobin 6.4 g/dL (11.5-16.0); Mean Corpuscular HGB 25.2 pg (26.0-34.0); Mean Corpuscular HGB Conc 29.4 g/dL (31.5-36.5); Mean Platelet Volume 8.2 fL (9.1-12.4); Platelet Count 185 K/mm3 (150-400); RDW Coefficient Variation 18.7 % (11.7-14.2); Red Blood Cell Count 2.54 M/mm3 (3.80-5.20); White Blood Cell Count 18.19 K/mm3 (4.00-11.30)
[2020-08-12 06:12] LABS: Mean Corpuscular Volume 86 fL (80-100)
[2020-08-12 06:27] LABS: Bun/Creatinine Ratio 27.7 (12.0-20.0); Calcium, Blood 8.8 mg/dL (8.5-10.1); Creatinine, Blood 1.95 mg/dL (0.40-1.00); Potassium, Blood 6.1 mmol/L (3.5-5.5)
--- NOTE | 2020-08-12 07:16 | NUR ---
SHIFT SUMMARY: JINNY IS A&OX4. VSS. BILATERAL STUMP SOCKS C/D&I. SHE IS TOLERATING PO INTAKE WELL. POWERGLIDE TO CIRA PATENT. MEPILEX TO COCCYX C/D&I. ADEQUATE PAIN CONTROL ACHIEVED AFTER ADMINISTRATION OF 2 TABLETS OF OXYCONTIN 5 MG AND 1 MG OF IV DILAUDID. SHE USES HER CALL LIGHT APPROPRIATELY. SHE IS ABLE TO HELP TURN AND REPOSITION HERSELF. SHE IS A LITTLE EMOTIONALLY LABILE, NOT OUT OF PROPORTION CONSIDERING HER CIRCUMSTANCES. SHE IS LYING IN BED WITH HER CALL LIGHT IN REACH. WILL REPORT TO DAY SHIFT RN.
[2020-08-12 14:57] LABS: Bun/Creatinine Ratio 26.9 (12.0-20.0); Creatinine, Blood 1.93 mg/dL (0.40-1.00)
[2020-08-12 16:07] LABS: BASOPHILS ABSOLUTE AUTO 0.11 K/mm3 (0.00-0.23); BASOPHILS PERCENT AUTO 1 % (0-2); EOSINOPHILS PERCENT AUTO 2 % (0-6); Hematocrit 25.4 % (33.0-51.0); Hemoglobin 7.5 g/dL (11.5-16.0); IMMATURE GRAN ABSOLUTE AUTO 1.72 K/mm3 (0.00-0.10); IMMATURE GRAN PERCENT AUTO 12 % (0-1); LYMPHOCYTES ABSOLUTE AUTO 3.25 K/mm3 (0.84-5.20); LYMPHOCYTES PERCENT AUTO 22 % (21-46); MONOCYTES ABSOLUTE AUTO 1.62 K/mm3 (0.16-1.47); MONOCYTES PERCENT AUTO 11 % (4-13); Mean Corpuscular HGB 24.9 pg (26.0-34.0); Mean Corpuscular HGB Conc 29.5 g/dL (31.5-36.5); Mean Corpuscular Volume 84 fL (80-100); Mean Platelet Volume 8.2 fL (9.1-12.4); NEUTROPHILS ABSOLUTE AUTO 7.89 K/mm3 (1.96-9.15); NEUTROPHILS PERCENT AUTO 53 % (41-73); Platelet Count 164 K/mm3 (150-400); RDW Coefficient Variation 18.1 % (11.7-14.2); RDW Standard Deviation 54.5 fL (35.1-46.3); Red Blood Cell Count 3.01 M/mm3 (3.80-5.20); White Blood Cell Count 14.89 K/mm3 (4.00-11.30)
--- NOTE | 2020-08-12 16:12 | NUR ---
SHIFT SUMMARY PT RECEIVED 1 UNIT PRBCS TODAY PER ORDERS. LABS IMPROVED SLIGHTLY. DR. REAGAN NOTIFIED OF CRITICAL HIGH POTASSIUM THIS AFTERNOON--NO NEW ORDERS AT THIS TIME. PT RECEIVING TYLENOL + GABAPENTIN + ROXICODONE FOR PAIN MANAGEMENT. IV DILAUDID GIVEN X1 FOR BREAKTHROUGH PHANTOM PAIN DURING DRESSING/LINEN CHANGES. STUMP SOCKS + DRESSING CHANGED BY JEANNIE LACEY AND MEPILEX DRESSING + GAUZE TO COCCYX CHANGED TODAY. ENCOURAGING REPOSITIONING Q2-3HOURS WITH PILLOWS. PT HAD X2 BMS TODAY. VALEIRE ADA DIET. IV ABX PER ORDERS. PT HAS BEEN PLEASANT AND COOPERATIVE THIS SHIFT. WORKED WITH PT/OT AND WAS ABLE TO DANGLE AT BEDSIDE. PT STILL REFUSING TO LOOK AT STUMPS AND IS STRUGGLING WITH COPING RELATED TO THE AMPUTATIONS, BUT HAS BEEN ABLE TO JOKE ABOUT HER ENTIRE SITUATION. DISTRACTION SEEMS TO BE EFFECTIVE WHEN PT STARTS TO VERBALIZE PHANTOM LIMB PAIN OR WHEN PT GETS ANXIOUS BEFORE THERAPY/BED MOBILITY. DAUGHTER AT BEDSIDE FOR SUPPORT THIS AFTERNOON. PT USES CALL LIGHT APPROPRIATELY.
--- NOTE | 2020-08-13 04:03 | NUR ---
SHIFT SUMMARY: PT WHILE AWAKE IS ALERT AND ORIENTED X4. SHE HAS BEEN SLEEPING MAJORITY OF THE SHIFT BUT IS EASILY AROUSABLE. VITALS ARE WNL AND SHE IS ON RA. PAIN IS CONTROLLED WITH TYLENOL, BAGAPENTIN, AND DEYA. IV DILAUDID HAS BEEN GIVEN ONCE FOR BREAKTHROUGH PAIN. ENCOURAGED PATIENT TO REPOSITION EVERY 2-3 HOURS WITH PILLOWS. PT HAS BEEN VALERIE. PO INTAKE. PT REFUSES TO LOOK AT AMPUTATIONS BUT WILL MAKE JOKES ABOUT THEM A COPING MECHANISM. TALKING THROUGH WITH PATIENT ABOUT HER FEELINGS HAS HELPED HER WITH COPING WITH PAIN. PATIENT WORKED WITH PHYSICAL THERAPY YESTERDAY. SHE HAD ALL OF HER DRESSINGS CHANGED YESTERDAY WELL. MEPILEX DRESSING ON COCCYX IS C/D/I. STUMP SOCKS AND DRESSING ARE ALSO C/D/I. PATIENT HAS BEEN ANXIOUS AT TIMES ESPECIALLY WITH "STAYING ON TOP OF" PAIN MEDICATIONS. THOUGH MAJORITY OF THE SHIFT SHE HAS BEEN PLEASANT AND COOPERATIVE. THE PLAN IS TO CONTINUE PHYSICAL THERAPY, IMPROVE COPING, AND TO CONTROL PAIN.
[2020-08-13 06:35] LABS: Hematocrit 23.8 % (33.0-51.0); Mean Corpuscular HGB 25.6 pg (26.0-34.0); Mean Corpuscular HGB Conc 29.4 g/dL (31.5-36.5); Mean Corpuscular Volume 87 fL (80-100); Mean Platelet Volume 9.2 fL (9.1-12.4); Platelet Count 112 K/mm3 (150-400); RDW Coefficient Variation 18.6 % (11.7-14.2); RDW Standard Deviation 59.2 fL (35.1-46.3); Red Blood Cell Count 2.73 M/mm3 (3.80-5.20); White Blood Cell Count 15.09 K/mm3 (4.00-11.30)
[2020-08-13 06:51] LABS: Bun/Creatinine Ratio 24.7 (12.0-20.0); Calcium, Blood 8.7 mg/dL (8.5-10.1); Creatinine, Blood 1.78 mg/dL (0.40-1.00); Potassium, Blood 5.4 mmol/L (3.5-5.5)
--- NOTE | 2020-08-13 07:44 | NUR ---
CBG 48, PT DENIES ANY HYPOGLYCEMIC SYMPTOMS. 120 ML OF ORANGE JUICE GIVEN
[2020-08-13 11:00] LABS: Influenza A, PCR Negative (NEGATIVE); Influenza B, PCR Negative (NEGATIVE); Resp Syncytial Virus, PCR Negative (NEGATIVE); SARS-Cov-2 (COVID-19) PCR, MMC Negative (NEGATIVE)
--- NOTE | 2020-08-13 12:01 | NUR ---
REPORT PHONED TO SAMRA PENALOZA AT [facility]. ANTICIPATED TRANSPORT TIME IS 1400. PT IS AWARE OF AND AGREEABLE TO PLAN FOR TRANSFER
--- NOTE | 2020-08-13 14:47 | NUR ---
SPOKE WITH JENS LINES (PHYSICAL THERAPY) TO OBTAIN PRESSURE CUSHION FOR THIS PATIENT, PER JENS BEST INTERVENTION AT THIS TIME WOULF BE TO POSITION PT OFF OF COCCYX. PT WILL BE TRANSFERRED TO [facility] LATER TODAY
--- NOTE | 2020-08-13 14:52 | NUR ---
1425 DISCHARGED WITH [facility] STAFF TO TRANSPORT TO SNF
[2020-08-16 14:08] LABS: HEPARIN INDUCED PLATELET AB 0.086 OD (0.000-0.400)
== END 2020-08-13 14:25 | DRG 853 ==
LOC: ER 16:48 → PCU 21:17 → SURS 21:17 → PCU 21:32 → SURS 08-08 15:40
PROVIDERS: Anesthesiology; Emergency Medicine; Family Medicine; Internal Medicine; Orthopaedic Surgery; Surgery; ADMIT Family Medicine
PROC: 0JB70ZZ Excision of Back Subcutaneous Tissue and Fascia, Open Approach (ICD-10-PCS; 2020-08-10)
PROC: 3E02340 Introduction of Influenza Vaccine into Muscle, Percutaneous Approach (ICD-10-PCS; 2020-08-10)
PROC: 0Y6J0Z1 Detachment at Left Lower Leg, High, Open Approach (ICD-10-PCS; principal; 2020-08-10 12:30)
PROC: 0Y6H0Z1 Detachment at Right Lower Leg, High, Open Approach (ICD-10-PCS; 2020-08-10 12:30)
DX: A41.9 Sepsis, unspecified organism (principal); L89.153 Pressure ulcer of sacral region, stage 3; N17.0 Acute kidney failure with tubular necrosis; E11.52 Type 2 diabetes mellitus with diabetic peripheral angiopathy with gangrene; E87.1 Hypo-osmolality and hyponatremia; M86.9 Osteomyelitis, unspecified; R65.20 Severe sepsis without septic shock; E87.6 Hypokalemia; E87.5 Hyperkalemia; I87.2 Venous insufficiency (chronic) (peripheral); I10 Essential (primary) hypertension; E11.42 Type 2 diabetes mellitus with diabetic polyneuropathy; E66.9 Obesity, unspecified; Z20.828 Contact with and (suspected) exposure to other viral communicable diseases; Z68.32 Body mass index [BMI] 32.0-32.9, adult; Z87.891 Personal history of nicotine dependence; D50.9 Iron deficiency anemia, unspecified; Z79.4 Long term (current) use of insulin; G54.6 Phantom limb syndrome with pain; Z23 Encounter for immunization
CPT/HCPCS: 0241U; 36415; 36430; 73620; 80048; 80053; 82270; 82607; 82728; 82746; 82947; 83540; 83550; 83605; 83735; 85014; 85018; 85025; 85027; 85651; 86022; 86140; 86850; 86900; 86901; 86923; 87040; 87070; 87075; 87205; 88307; 93922; 96365; 96366; 96367; 97110; 97162; 97166; 97530; 99285-25; A9270; C1751; J0610; J0744; J1100; J1170; J1644; J1815; J1940; J2250; J2405; J2543; J2704; J2916; J3010; J3370; J7030; J7050; J7120; P9016; Q2038

== ENCOUNTER 2020-08-18 00:33 | Day surgery (SDC) | payer OTHER ==
[~2020-08-18 00:33] MED LIST: AMLODIPINE BESYL5 MG PO; ATORVASTATIN CA20 MG PO; LISI20 PO; METOPROLOL TAR100 M1 PO; NOVOLOG MI100 UNIT/2 SC
== END 2020-08-18 22:46 | disposition home or self-care (01) ==
LOC: WOUND 00:33
DX: I96 Gangrene, not elsewhere classified (principal); L89.153 Pressure ulcer of sacral region, stage 3; I12.9 Hypertensive chronic kidney disease with stage 1 through stage 4 chronic kidney disease, or unspecified chronic kidney disease; E11.22 Type 2 diabetes mellitus with diabetic chronic kidney disease; N18.9 Chronic kidney disease, unspecified; E11.52 Type 2 diabetes mellitus with diabetic peripheral angiopathy with gangrene; D50.9 Iron deficiency anemia, unspecified; E11.69 Type 2 diabetes mellitus with other specified complication; M86.8X9 Other osteomyelitis, unspecified sites; E11.40 Type 2 diabetes mellitus with diabetic neuropathy, unspecified; E11.21 Type 2 diabetes mellitus with diabetic nephropathy; K21.9 Gastro-esophageal reflux disease without esophagitis; Z79.4 Long term (current) use of insulin; Z79.899 Other long term (current) drug therapy; Z89.512 Acquired absence of left leg below knee; Z89.511 Acquired absence of right leg below knee; Z87.891 Personal history of nicotine dependence
CPT/HCPCS: G0463

== ENCOUNTER 2020-08-20 07:06 | Day surgery (SDC) | payer OTHER, MEDICARE ==
--- NOTE | 2020-08-20 17:50 | NUR ---
Spoke with Shari at [facility] and gave her a report. Pt was picked up by [facility] via [facility].
== END 2020-08-20 17:44 | disposition home or self-care (01) ==
LOC: ATC 07:06
DX: D50.0 Iron deficiency anemia secondary to blood loss (chronic) (principal)
CPT/HCPCS: 36415; 86850; 86900; 86901; 86923; J7050; P9016

== ENCOUNTER 2020-08-23 15:45 | Inpatient (IN) | payer OTHER, MEDICARE ==
[~2020-08-23] VITALS: Ht 170.2 cm; Wt 99.8 kg
[2020-08-23] MEDS ORDERED: GABA300 PO (16:07)
[2020-08-23] MEDS ORDERED: MIRALAX17 GM PO (16:08)
[2020-08-23] MEDS ORDERED: BASAGLAR K100 UNIT/1 SC (16:08)
[2020-08-23] MEDS ORDERED: ACET325 PO (16:09)
[2020-08-23] MEDS ORDERED: OXYC10TA19 PO (16:09)
[2020-08-23 16:22] LABS: Hematocrit 27.3 % (33.0-51.0); Hemoglobin 8.2 g/dL (11.5-16.0); Mean Corpuscular HGB 26.9 pg (26.0-34.0); Mean Corpuscular Volume 90 fL (80-100); Mean Platelet Volume 8.3 fL (9.1-12.4); Platelet Count 294 K/mm3 (150-400); RDW Coefficient Variation 19.3 % (11.7-14.2); RDW Standard Deviation 63.3 fL (35.1-46.3); Red Blood Cell Count 3.05 M/mm3 (3.80-5.20)
[2020-08-23 16:24] LABS: Source, Urine Clean Catch
[2020-08-23 16:26] LABS: Appearance, Urine Hazy (Clear); Bilirubin, Urine Neg (Neg); Blood, Urine 4+ (Neg); Color, Urine Yellow (P-Yellow); Glucose Qualitative, Urine Neg (Neg); Ketones, Urine Neg (Neg); Leukocyte Esterase, Urine 3+ (Neg); Nitrite, Urine Neg (Neg); Protein, Urine 3+ (Neg); Specific Gravity, Urine 1.015 (1.003-1.022); Urobilinogen, Urine NORM (Normal)
[2020-08-23 16:48] LABS: Albumin, Blood 1.7 g/dL (3.4-5.0); Albumin/Globulin Ratio 0.3 (0.8-1.8); Bilirubin, Total 0.4 mg/dL (0.1-1.0); Calcium, Blood 8.8 mg/dL (8.5-10.1); Creatinine, Blood 1.76 mg/dL (0.40-1.00); Globulin, Blood 5.5 g/dL (2.2-4.0); Potassium, Blood 6.5 mmol/L (3.5-5.5); Total Protein, Blood 7.2 g/dL (6.4-8.2)
[2020-08-23 16:49] LABS: Squamous Epithelial Cells Rare /hpf (Few); White Blood Cells, Urine 25-50 /hpf (0-5)
[2020-08-23 16:50] LABS: Bacteria Rare /hpf; Yeast/Fungi Urine Mod /hpf
[2020-08-23 17:00] LABS: BAND PERCENT MAN 1 % (0-8); BASOPHILS PERCENT MAN 1 % (0-2); EOSINOPHILS ABSOLUTE MAN 0.42 K/mm3 (0.00-0.68); EOSINOPHILS PERCENT MAN 4 % (0-6); LYMPHOCYTES ABSOLUTE MAN 2.03 K/mm3 (0.84-5.20); LYMPHOCYTES PERCENT MAN 19 % (21-46); METAMYELOCYTE ABSOLUTE MAN 0.32 K/mm3 (0.00-0.00); METAMYELOCYTE PERCENT MAN 3 % (0-0); MONOCYTES ABSOLUTE MAN 0.32 K/mm3 (0.16-1.47); MONOCYTES PERCENT MAN 3 % (4-13); NEUTROPHILS ABSOLUTE MAN 7.49 K/mm3 (1.96-9.15); SEG NEUTROPHILS PERCENT MAN 69 % (41-73); TOTAL CELLS COUNTED 100
[2020-08-23 19:47] LABS: Bun/Creatinine Ratio 34.3 (12.0-20.0); Creatinine, Blood 1.69 mg/dL (0.40-1.00); Potassium, Blood 6.1 mmol/L (3.5-5.5)
[2020-08-23 23:28] LABS: Calcium, Blood 8.7 mg/dL (8.5-10.1); Creatinine, Blood 1.75 mg/dL (0.40-1.00); Potassium, Blood 6.3 mmol/L (3.5-5.5)
[2020-08-24 03:37] LABS: Hematocrit 28.2 % (33.0-51.0); Hemoglobin 8.9 g/dL (11.5-16.0); Mean Corpuscular HGB 27.4 pg (26.0-34.0); Mean Corpuscular HGB Conc 31.6 g/dL (31.5-36.5); Mean Corpuscular Volume 87 fL (80-100); Mean Platelet Volume 8.2 fL (9.1-12.4); Platelet Count 279 K/mm3 (150-400); RDW Coefficient Variation 19.2 % (11.7-14.2); RDW Standard Deviation 61.1 fL (35.1-46.3); Red Blood Cell Count 3.25 M/mm3 (3.80-5.20); White Blood Cell Count 9.06 K/mm3 (4.00-11.30)
[2020-08-24 03:56] LABS: Bun/Creatinine Ratio 32.9 (12.0-20.0); Creatinine, Blood 1.73 mg/dL (0.40-1.00); Potassium, Blood 6.2 mmol/L (3.5-5.5)
[2020-08-24 04:25] LABS: BASOPHILS PERCENT MAN 0 % (0-2); EOSINOPHILS ABSOLUTE MAN 0.36 K/mm3 (0.00-0.68); EOSINOPHILS PERCENT MAN 4 % (0-6); LYMPHOCYTES ABSOLUTE MAN 2.17 K/mm3 (0.84-5.20); LYMPHOCYTES PERCENT MAN 24 % (21-46); METAMYELOCYTE ABSOLUTE MAN 0.09 K/mm3 (0.00-0.00); METAMYELOCYTE PERCENT MAN 1 % (0-0); MONOCYTES ABSOLUTE MAN 1.08 K/mm3 (0.16-1.47); MONOCYTES PERCENT MAN 12 % (4-13); NEUTROPHILS ABSOLUTE MAN 5.34 K/mm3 (1.96-9.15); SEG NEUTROPHILS PERCENT MAN 59 % (41-73); TOTAL CELLS COUNTED 100
[2020-08-24] MEDS ORDERED: ACET325 PO (05:51)
[2020-08-24] MEDS ORDERED: OXYC10TA19 PO (05:56)
[2020-08-24 08:35] LABS: Bun/Creatinine Ratio 31.4 (12.0-20.0); Calcium, Blood 8.7 mg/dL (8.5-10.1); Creatinine, Blood 1.69 mg/dL (0.40-1.00)
[2020-08-24 08:38] LABS: Potassium, Blood 6.3 mmol/L (3.5-5.5)
[2020-08-24 18:10] LABS: Source, Urine Catheter
[2020-08-24 18:21] LABS: Appearance, Urine Cloudy (Clear); Bilirubin, Urine Neg (Neg); Blood, Urine 5+ (Neg); Color, Urine Yellow (P-Yellow); Glucose Qualitative, Urine Neg (Neg); Ketones, Urine Neg (Neg); Leukocyte Esterase, Urine 3+ (Neg); Nitrite, Urine Neg (Neg); Protein, Urine 3+ (Neg); Specific Gravity, Urine 1.015 (1.003-1.022); Urobilinogen, Urine NORM (Normal)
[2020-08-24 18:26] LABS: Albumin, Blood 1.6 g/dL (3.4-5.0); Anion Gap 6 mmol/L (6-16); Blood Urea Nitrogen 53 mg/dL (8-24); Bun/Creatinine Ratio 31.5 (12.0-20.0); CO2, Blood 22 mmol/L (21-32); Calcium, Blood 8.5 mg/dL (8.5-10.1); Chloride, Blood 102 mmol/L (98-108); Creatinine, Blood 1.68 mg/dL (0.40-1.00); Glomerular Filtration Rate 32 (60-); Glucose, Blood 143 mg/dL (70-99); Phosphorus, Blood 4.4 mg/dL (2.5-4.9); Potassium, Blood 5.7 mmol/L (3.5-5.5); Sodium, Blood 130 mmol/L (136-145)
[2020-08-24 18:42] LABS: White Blood Cells, Urine TNTC /hpf (0-5); Yeast/Fungi Urine Many /hpf
[2020-08-24 18:45] LABS: Bacteria Many /hpf; Squamous Epithelial Cells Not Seen /hpf (Few)
[2020-08-25 06:11] LABS: Hematocrit 22.8 % (33.0-51.0); Hemoglobin 6.8 g/dL (11.5-16.0); Mean Corpuscular HGB 26.6 pg (26.0-34.0); Mean Corpuscular HGB Conc 29.8 g/dL (31.5-36.5); Mean Corpuscular Volume 89 fL (80-100); Mean Platelet Volume 8.2 fL (9.1-12.4); Platelet Count 317 K/mm3 (150-400); RDW Coefficient Variation 19.2 % (11.7-14.2); Red Blood Cell Count 2.56 M/mm3 (3.80-5.20); White Blood Cell Count 10.19 K/mm3 (4.00-11.30)
[2020-08-25 06:37] LABS: Albumin, Blood 1.5 g/dL (3.4-5.0); Anion Gap 5 mmol/L (6-16); Blood Urea Nitrogen 57 mg/dL (8-24); Bun/Creatinine Ratio 31.5 (12.0-20.0); CO2, Blood 25 mmol/L (21-32); CPK Creatine Kinase 27 U/L (26-193); Calcium, Blood 8.5 mg/dL (8.5-10.1); Chloride, Blood 104 mmol/L (98-108); Creatinine, Blood 1.81 mg/dL (0.40-1.00); Glomerular Filtration Rate 30 (60-); Glucose, Blood 105 mg/dL (70-99); Magnesium, Blood 2.2 mg/dL (1.6-2.4); Phosphorus, Blood 5.2 mg/dL (2.5-4.9); Potassium, Blood 5.2 mmol/L (3.5-5.5); Sodium, Blood 134 mmol/L (136-145); Uric Acid, Blood 5.8 mg/dL (2.6-6.0)
[2020-08-25 07:57] LABS: Percent Saturation 13.2 % (15.0-50.0)
[2020-08-26 04:43] LABS: Hematocrit 25.8 % (33.0-51.0); Hemoglobin 8.1 g/dL (11.5-16.0)
[2020-08-26 05:03] LABS: Albumin, Blood 1.5 g/dL (3.4-5.0); Anion Gap 6 mmol/L (6-16); Blood Urea Nitrogen 68 mg/dL (8-24); Bun/Creatinine Ratio 37.6 (12.0-20.0); CO2, Blood 25 mmol/L (21-32); Calcium, Blood 8.6 mg/dL (8.5-10.1); Chloride, Blood 100 mmol/L (98-108); Creatinine, Blood 1.81 mg/dL (0.40-1.00); Glomerular Filtration Rate 30 (60-); Glucose, Blood 145 mg/dL (70-99); Magnesium, Blood 2.1 mg/dL (1.6-2.4); Phosphorus, Blood 5.3 mg/dL (2.5-4.9); Potassium, Blood 5.3 mmol/L (3.5-5.5); Sodium, Blood 131 mmol/L (136-145)
[2020-08-26] MEDS ORDERED: GABA600 PO (12:19)
[2020-08-26] MEDS ORDERED: OXYC5 PO (12:20)
[2020-08-26] MEDS ORDERED: XARELTO15 MG PO (12:20)
[2020-08-26] MEDS ORDERED: Diflucan100 MG PO (12:21)
[2020-08-26 12:34] LABS: Influenza A, PCR Negative (NEGATIVE); Influenza B, PCR Negative (NEGATIVE); Resp Syncytial Virus, PCR Negative (NEGATIVE); SARS-Cov-2 (COVID-19) PCR, MMC Negative (NEGATIVE)
== END 2020-08-26 15:40 | DRG 640 ==
LOC: ER 15:45 → MEDS 20:30
PROVIDERS: Internal Medicine; Internal Medicine Nephrology; Physician Assistant; ADMIT Internal Medicine
PROC: 30233N1 Transfusion of Nonautologous Red Blood Cells into Peripheral Vein, Percutaneous Approach (ICD-10-PCS; principal; 2020-08-23)
DX: E87.5 Hyperkalemia (principal); L89.153 Pressure ulcer of sacral region, stage 3; J96.01 Acute respiratory failure with hypoxia; D63.1 Anemia in chronic kidney disease; Z20.828 Contact with and (suspected) exposure to other viral communicable diseases; I12.9 Hypertensive chronic kidney disease with stage 1 through stage 4 chronic kidney disease, or unspecified chronic kidney disease; E11.22 Type 2 diabetes mellitus with diabetic chronic kidney disease; N18.30 Chronic kidney disease, stage 3 unspecified; I73.9 Peripheral vascular disease, unspecified; Z89.512 Acquired absence of left leg below knee; Z89.511 Acquired absence of right leg below knee; Z86.718 Personal history of other venous thrombosis and embolism; Z87.891 Personal history of nicotine dependence; Z91.19 Patient's noncompliance with other medical treatment and regimen; E87.70 Fluid overload, unspecified; E87.1 Hypo-osmolality and hyponatremia
CPT/HCPCS: 0241U; 36415; 71045; 76770; 78580; 80048; 80053; 80069; 81001; 82533; 82550; 82728; 82947; 83036; 83540; 83550; 83735; 83880; 84132; 84443; 84550; 85014; 85018; 85025; 85027; 86850; 86900; 86901; 86923; 87086; 87106; 93005; 93010; 93971; 96365; 96375; 97110; 97162; 97166; 97530; 99285-25; A9270; A9540; J0610; J0881; J1815; J1940; J7030; J7050; P9016

== ENCOUNTER 2020-08-31 00:35 | Day surgery (SDC) | payer OTHER ==
[~2020-08-31 00:35] MED LIST changes: +ACET325 PO; +BASAGLAR K100 UNIT/1 SC; +Diflucan100 MG PO; +GABA300 PO; +GABA600 PO; +MIRALAX17 GM PO; +OXYC10TA19 PO; +OXYC5 PO; +XARELTO15 MG PO
== END 2020-08-31 22:42 | disposition home or self-care (01) ==
LOC: WOUND 00:35
DX: I96 Gangrene, not elsewhere classified (principal); L89.153 Pressure ulcer of sacral region, stage 3; E11.22 Type 2 diabetes mellitus with diabetic chronic kidney disease; N18.9 Chronic kidney disease, unspecified; E11.21 Type 2 diabetes mellitus with diabetic nephropathy; D50.9 Iron deficiency anemia, unspecified; Z89.519 Acquired absence of unspecified leg below knee; Z89.512 Acquired absence of left leg below knee; Z89.511 Acquired absence of right leg below knee; Z88.8 Allergy status to other drugs, medicaments and biological substances; Z79.4 Long term (current) use of insulin; Z79.01 Long term (current) use of anticoagulants; Z79.899 Other long term (current) drug therapy; Z20.828 Contact with and (suspected) exposure to other viral communicable diseases

== ENCOUNTER → 2020-09-01 | Outpatient (CLI) | payer OTHER ==
[~2020-09-01] MED LIST changes: +ALBU90OI INH; +ALBU90OI6 INH; +ALPR1 PO; +AMLO5 PO; +AMOCLA875 PO; +ATOR20 PO; +BUMETANIDE2 MG PO; +FOLI1 PO; +FURO20 PO; +HUMALOG 70/30 SC; +LOKELMA PO; +METO100 PO; +Miralax17 GM PO; +OXYC10ER PO; +Silvadene20 GM TOP; +THERA-D2000 UNIT PO; +VITAMIN D310 MC4 PO; +XARELTO20 MG PO
[2020-09-01 17:12] LABS: Percent Saturation 19.7 % (15.0-50.0)
[2020-09-01 17:15] LABS: Albumin, Blood 1.7 g/dL (3.4-5.0); Anion Gap 8 mmol/L (6-16); Blood Urea Nitrogen 69 mg/dL (8-24); Bun/Creatinine Ratio 48.6 (12.0-20.0); CO2, Blood 22 mmol/L (21-32); Calcium, Blood 9.1 mg/dL (8.5-10.1); Chloride, Blood 98 mmol/L (98-108); Creatinine, Blood 1.42 mg/dL (0.40-1.00); Glomerular Filtration Rate 39 (60-); Glucose, Blood 118 mg/dL (70-99); Phosphorus, Blood 4.2 mg/dL (2.5-4.9); Potassium, Blood 5.4 mmol/L (3.5-5.5); Sodium, Blood 128 mmol/L (136-145)
== END ==
LOC: LAB SHORT 15:20
PROVIDERS: Internal Medicine Nephrology
DX: N18.30 Chronic kidney disease, stage 3 unspecified (principal); D63.1 Anemia in chronic kidney disease; N25.81 Secondary hyperparathyroidism of renal origin; E55.9 Vitamin D deficiency, unspecified; E78.00 Pure hypercholesterolemia, unspecified; D51.8 Other vitamin B12 deficiency anemias; D52.8 Other folate deficiency anemias; D50.9 Iron deficiency anemia, unspecified; R76.9 Abnormal immunological finding in serum, unspecified; R94.5 Abnormal results of liver function studies; R94.6 Abnormal results of thyroid function studies
CPT/HCPCS: 80069; 82306; 82530; 82607; 82728; 82746; 83540; 83550; 83970

== ENCOUNTER 2020-09-14 07:21 | Day surgery (SDC) | payer OTHER ==
[~2020-09-14 07:21] MED LIST changes: -ALBU90OI INH; -ALBU90OI6 INH; -ALPR1 PO; -AMLO5 PO; -AMOCLA875 PO; -ATOR20 PO; -BUMETANIDE2 MG PO; -FOLI1 PO; -FURO20 PO; -HUMALOG 70/30 SC; -LOKELMA PO; -METO100 PO; -Miralax17 GM PO; -OXYC10ER PO; -Silvadene20 GM TOP; -THERA-D2000 UNIT PO; -VITAMIN D310 MC4 PO; -XARELTO20 MG PO
[2020-09-14] MEDS ORDERED: FURO20 PO (13:16)
[2020-09-14] MEDS ORDERED: THERA-D2000 UNIT PO (13:17)
[2020-09-14] MEDS ORDERED: ALBU90OI6 INH (13:18)
== END 2020-09-14 15:16 | disposition home or self-care (01) ==
LOC: ATC 07:21 → EDSTATUS 07:22 → ATC 15:16
PROC: 30233N1 Transfusion of Nonautologous Red Blood Cells into Peripheral Vein, Percutaneous Approach (ICD-10-PCS; principal; 2020-09-14)
DX: D50.0 Iron deficiency anemia secondary to blood loss (chronic) (principal); I12.9 Hypertensive chronic kidney disease with stage 1 through stage 4 chronic kidney disease, or unspecified chronic kidney disease; E11.22 Type 2 diabetes mellitus with diabetic chronic kidney disease; N18.9 Chronic kidney disease, unspecified; D63.1 Anemia in chronic kidney disease; E11.42 Type 2 diabetes mellitus with diabetic polyneuropathy; E11.52 Type 2 diabetes mellitus with diabetic peripheral angiopathy with gangrene; E46 Unspecified protein-calorie malnutrition; E11.69 Type 2 diabetes mellitus with other specified complication; M86.8X0 Other osteomyelitis, multiple sites; E66.9 Obesity, unspecified; Z88.8 Allergy status to other drugs, medicaments and biological substances; Z79.4 Long term (current) use of insulin; Z79.899 Other long term (current) drug therapy; Z79.01 Long term (current) use of anticoagulants; Z20.822 Contact with and (suspected) exposure to COVID-19
CPT/HCPCS: 36415; 36430; 86850; 86900; 86901; 86923; 96374; J1940; J7050; P9016

== ENCOUNTER 2020-09-20 00:26 | Day surgery (SDC) | payer OTHER ==
[~2020-09-20 00:26] MED LIST changes: +ALBU90OI6 INH; +FURO20 PO; +THERA-D2000 UNIT PO
== END 2020-09-20 22:38 | disposition home or self-care (01) ==
LOC: WOUND 00:26
DX: L89.153 Pressure ulcer of sacral region, stage 3 (principal); D50.9 Iron deficiency anemia, unspecified; E11.22 Type 2 diabetes mellitus with diabetic chronic kidney disease; N18.9 Chronic kidney disease, unspecified; E11.21 Type 2 diabetes mellitus with diabetic nephropathy; Z89.519 Acquired absence of unspecified leg below knee; Z88.8 Allergy status to other drugs, medicaments and biological substances; Z79.4 Long term (current) use of insulin; Z79.899 Other long term (current) drug therapy; Z79.01 Long term (current) use of anticoagulants; Z20.822 Contact with and (suspected) exposure to COVID-19
CPT/HCPCS: 87071; 87075; 87077; 87186; 87205; A9270

== ENCOUNTER 2020-09-27 00:21 | Day surgery (SDC) | payer OTHER ==
[2020-09-27] MEDS ORDERED: ATOR20 PO (14:13)
[2020-09-27] MEDS ORDERED: AMLO5 PO (14:13)
[2020-09-27] MEDS ORDERED: FURO20 PO (14:14)
[2020-09-27] MEDS ORDERED: LOKELMA PO (14:15)
[2020-09-27] MEDS ORDERED: Miralax17 GM PO (14:15)
[2020-09-27] MEDS ORDERED: VITAMIN D310 MC4 PO (14:16)
[2020-09-27] MEDS ORDERED: BUMETANIDE2 MG PO (14:17)
[2020-09-27] MEDS ORDERED: XARELTO20 MG PO (14:17)
[2020-09-27] MEDS ORDERED: AMOCLA875 PO (14:17)
[2020-09-27] MEDS ORDERED: GABA300 PO (14:18)
[2020-09-27] MEDS ORDERED: METO100 PO (14:19)
[2020-09-27] MEDS ORDERED: ACET325 PO (14:19)
[2020-09-27] MEDS ORDERED: OXYC10ER PO (14:20)
[2020-09-27] MEDS ORDERED: ALBU90OI INH (14:21)
[2020-09-27] MEDS ORDERED: ALPR1 PO (14:22)
[2020-09-27] MEDS ORDERED: HUMALOG 70/30 SC (14:28)
[2020-09-27] MEDS ORDERED: Silvadene20 GM TOP (14:29)
== END 2020-09-27 22:36 | disposition home or self-care (01) ==
LOC: WOUND 00:21
DX: L89.154 Pressure ulcer of sacral region, stage 4 (principal); R60.1 Generalized edema; E11.59 Type 2 diabetes mellitus with other circulatory complications; E11.22 Type 2 diabetes mellitus with diabetic chronic kidney disease; N18.9 Chronic kidney disease, unspecified; E11.21 Type 2 diabetes mellitus with diabetic nephropathy; L08.9 Local infection of the skin and subcutaneous tissue, unspecified; B95.2 Enterococcus as the cause of diseases classified elsewhere; B96.89 Other specified bacterial agents as the cause of diseases classified elsewhere; D50.9 Iron deficiency anemia, unspecified; R93.7 Abnormal findings on diagnostic imaging of other parts of musculoskeletal system; I70.0 Atherosclerosis of aorta; Z89.512 Acquired absence of left leg below knee; Z89.511 Acquired absence of right leg below knee
CPT/HCPCS: A9270

== ENCOUNTER 2020-09-29 10:53 | Day surgery (SDC) | payer OTHER ==
[~2020-09-29] VITALS: Ht 170.2 cm; Wt 93.0 kg
[~2020-09-29 10:53] MED LIST changes: -FOLI1 PO
--- NOTE | 2020-09-29 12:47 | NUR ---
Rhona Paws warming gown applied. History, Chart, Medications and Allergies reviewed before start of procedure.Lungs clear T/O to Auscultation. Patient confirms NPO status and agrees with scheduled surgery. Pre-Op teaching done. Pt verbalizes understanding. Patient States Post-Procedure ride home has been arranged.
--- NOTE | 2020-09-29 15:12 | NUR ---
Discharge instructions reviewed with patient. Patient verbalizes understanding. Copy given to patient to take home. CALL TO RONI PEREZ AND REPORT GIVEN TO FLOOR NURSE REGARDING PATIENT. PATIENT SENT WITH DISCHARGE INSTRUCTIONS AND ALL BELONGINGS.
--- NOTE | 2020-09-30 12:21 | NUR ---
09/30/20 1221 Carmen Davis VERIFICATIONS: EDIT CHART.
== END 2020-09-29 22:35 | disposition home or self-care (01) ==
LOC: ORSCMMR 10:53
PROVIDERS: Orthopaedic Surgery
PROC: 0JBP0ZZ Excision of Left Lower Leg Subcutaneous Tissue and Fascia, Open Approach (ICD-10-PCS; principal; 2020-09-29 11:45)
DX: S81.802A Unspecified open wound, left lower leg, initial encounter (principal); L03.116 Cellulitis of left lower limb; Z89.9 Acquired absence of limb, unspecified; I10 Essential (primary) hypertension; N18.9 Chronic kidney disease, unspecified; Z79.899 Other long term (current) drug therapy
CPT/HCPCS: 82947; 87071; 87075; 87076; 87077; 87147; 87185; 87186; 87205; A9270; J0690; J2250; J2370; J2405; J2704; J3010; J7120

== ENCOUNTER → 2020-09-29 | Outpatient (CLI) | payer OTHER ==
[~2020-09-29] MED LIST changes: +ALBU90OI INH; +ALPR1 PO; +AMLO5 PO; +AMOCLA875 PO; +ATOR20 PO; +BUMETANIDE2 MG PO; +FOLI1 PO; +HUMALOG 70/30 SC; +LOKELMA PO; +METO100 PO; +Miralax17 GM PO; +OXYC10ER PO; +Silvadene20 GM TOP; +VITAMIN D310 MC4 PO; +XARELTO20 MG PO
[2020-09-29 08:20] LABS: Calcium, Blood 8.9 mg/dL (8.5-10.1); Creatinine, Blood 2.3 mg/dL (0.40-1.00); Potassium, Blood 4.5 mmol/L (3.5-5.5)
== END ==
LOC: LAB 07:54 → LAB SHORT 07:54
PROVIDERS: Ophthalmology
DX: Z47.81 Encounter for orthopedic aftercare following surgical amputation (principal); Z98.890 Other specified postprocedural states
CPT/HCPCS: 80048

== ENCOUNTER 2020-10-03 03:21 | Inpatient (IN) | payer OTHER ==
[~2020-10-03] VITALS: Ht 170.2 cm; Wt 98.2 kg
[2020-10-03 03:54] LABS: Hematocrit 24.4 % (33.0-51.0); Hemoglobin 6.9 g/dL (11.5-16.0); Mean Corpuscular HGB 26.7 pg (26.0-34.0); Mean Corpuscular HGB Conc 28.3 g/dL (31.5-36.5); Mean Corpuscular Volume 95 fL (80-100); Mean Platelet Volume 9.4 fL (9.1-12.4); NRBC ABSOLUTE 0.02 K/mm3 (0.00-0.02); Platelet Count 635 K/mm3 (150-400); RDW Coefficient Variation 16.8 % (11.7-14.2); RDW Standard Deviation 55.8 fL (35.1-46.3); Red Blood Cell Count 2.58 M/mm3 (3.80-5.20); White Blood Cell Count 41.75 K/mm3 (4.00-11.30)
[2020-10-03 03:59] LABS: PCO2 Arterial 31.1 mmHg (35-45); PO2 Arterial 97.3 mmHg (80-100); pH Blood Arterial 7.31 (7.35-7.45)
[2020-10-03 04:14] LABS: Alanine Aminotransfer (ALT/SGP 37 U/L (12-78); Albumin, Blood 1.9 g/dL (3.4-5.0); Albumin/Globulin Ratio 0.3 (0.8-1.8); Alk Phos 321 U/L (50-136); Anion Gap 19 mmol/L (6-16); Aspartate Aminotrans (AST/SGOT 108 U/L (12-37); Bilirubin, Total 0.7 mg/dL (0.1-1.0); Blood Urea Nitrogen 98 mg/dL (8-24); Bun/Creatinine Ratio 32.1 (12.0-20.0); CO2, Blood 18 mmol/L (21-32); Calcium, Blood 8.8 mg/dL (8.5-10.1); Chloride, Blood 87 mmol/L (98-108); Creatinine, Blood 3.05 mg/dL (0.40-1.00); Globulin, Blood 6.4 g/dL (2.2-4.0); Glomerular Filtration Rate 16 (60-); Glucose, Blood 94 mg/dL (70-99); Potassium, Blood 5.8 mmol/L (3.5-5.5); Sodium, Blood 124 mmol/L (136-145); Total Protein, Blood 8.3 g/dL (6.4-8.2); Troponin I <0.015 ng/mL (0.000-0.040)
[2020-10-03 04:19] LABS: BAND PERCENT MAN 4 % (0-8); BASOPHILS ABSOLUTE MAN 0.41 K/mm3 (0.00-0.23); BASOPHILS PERCENT MAN 1 % (0-2); EOSINOPHILS ABSOLUTE MAN 0.41 K/mm3 (0.00-0.68); EOSINOPHILS PERCENT MAN 1 % (0-6); LYMPHOCYTES ABSOLUTE MAN 7.51 K/mm3 (0.84-5.20); LYMPHOCYTES PERCENT MAN 18 % (21-46); METAMYELOCYTE ABSOLUTE MAN 3.34 K/mm3 (0.00-0.00); METAMYELOCYTE PERCENT MAN 8 % (0-0); MONOCYTES ABSOLUTE MAN 1.25 K/mm3 (0.16-1.47); MONOCYTES PERCENT MAN 3 % (4-13); MYELOCYTE ABSOLUTE MAN 5.01 K/mm3 (0.00-0.00); MYELOCYTE PERCENT MAN 12 % (0-0); NEUTROPHILS ABSOLUTE MAN 23.79 K/mm3 (1.96-9.15); SEG NEUTROPHILS PERCENT MAN 53 % (41-73); TOTAL CELLS COUNTED 100
[2020-10-03] MEDS ORDERED: FOLI1 PO (04:47)
[2020-10-03 05:55] LABS: Influenza A, PCR Negative (NEGATIVE); Influenza B, PCR Negative (NEGATIVE); Resp Syncytial Virus, PCR Negative (NEGATIVE); SARS-Cov-2 (COVID-19) PCR, MMC Negative (NEGATIVE)
--- NOTE | 2020-10-03 06:50 | NUR ---
ADMIT RECEIVED FROM ER VIA GURNEY. AWAKE AND ALERT. ORIENTED AND COOPERATIVE. MOVES ALL EXTREMITIES. O2 3L NC. DYSPNEA NOTED WITH EXERTION. COCCYX DRSG D/I. INCONTINENT OF SMALL AMOUNT OF SOFT BROWN STOOL. MUELLER IN PLACE BUT NO URINE NOTED AT THIS TIME. ZOSYN INFUSING. 1ST LITER OF NS ALMOST COMPLETE. BILATERAL BKA NOTED- WILL TAKE PICTURES OF WOUNDS. HX OF DVT IN LEFT UPPER ARM PER PATIENT. NEW ORDER RECEIVED FROM DR. BOBO FOR SHEETER WAXER OPERATOR CONSULT AND FOR PICC LINE PLACEMENT IF POSSIBLE. WILL REPORT TO ONCOMING RN WHEN AVAILABLE.
--- NOTE | 2020-10-03 08:00 | NUR ---
PT RECEIVED AN ADMISSION FROM [facility]. JUST ARRIVED IN THE UNIT AT 0700. PT COMPLAINS OF SHORTNESS OF BREATH, SHE STATES SHE HASN'T BEEN FEELING WELL SINCE YESTERDAY. WE STARTED IV FLUID BOLUSES AND ANTIBIOTICS, WE ALSO GAVE ONE UNIT OF PRBC'S. WE TOOK PHOTOS OF HER COCCYX, AND BILATERAL LOWER EXTREMITY SURGICAL SITES. PATIENT STATES THAT HER COCCYX HAS IMPROVED, SHE HAD JUST HAD THE WOUND VAC REMOVED. SHE STATES THAT SHE GETS UP IN THE WHEELCHAIR AT HER CARE FACILITY. HER BREATH SOUNDS ARE DIMINISHED IN THE BASES, OTHERWISE CLEAR. HER BELLY IS SOFT/NON-TENDER. SHE FEELS NAUSEATED, EMESIS OF BILE. HER MUELLER IS DRAINING A SCANT(DROPS) AMOUNT OF URINE. HER ARMS ARE BRUISED,SCRAPED SHE SAID THAT SHE MIGHT HAVE FALLEN AT HER FDC. HER LEG INCISIONS ARE RED, DARK IN COLOR TENDER TO THE TOUCH. HER THIGHS ARE TAUT, VERY TENDER, WITH 1+ EDEMA. SHE IS ANSWERING ALL QUESTIONS APPROPRIATELY.
--- NOTE | 2020-10-03 11:00 | NUR ---
PICC LINE PLACED BY TREMA[facility] CRAWFORD, PLACEMENT VERIFIED BY XRAY. CARL HAS BEEN VISITED BY AND . ORDERS RECEIVED. PT USING HER OXYGEN VIA NASAL CANNULA WITHOUT A PROBLEM.
[2020-10-03 11:08] LABS: International Normalized Ratio 2.41; Prothrombin Time Results 24.5 Sec (9.7-11.5)
[2020-10-03 12:24] LABS: CPK Creatine Kinase 57 U/L (26-193); Troponin I <0.015 ng/mL (0.000-0.040)
[2020-10-03 12:38] LABS: Albumin, Blood 2.1 g/dL (3.4-5.0); Anion Gap 20 mmol/L (6-16); Anion Gap 21 mmol/L (6-16); Blood Urea Nitrogen 98 mg/dL (8-24); Blood Urea Nitrogen 99 mg/dL (8-24); Bun/Creatinine Ratio 32.6 (12.0-20.0); Bun/Creatinine Ratio 33.1 (12.0-20.0); CO2, Blood 16 mmol/L (21-32); CO2, Blood 17 mmol/L (21-32); Calcium, Blood 8.9 mg/dL (8.5-10.1); Chloride, Blood 90 mmol/L (98-108); Creatinine, Blood 2.99 mg/dL (0.40-1.00); Creatinine, Blood 3.01 mg/dL (0.40-1.00); Glomerular Filtration Rate 17 (60-); Glucose, Blood 103 mg/dL (70-99); Glucose, Blood 104 mg/dL (70-99); Phosphorus, Blood 10.1 mg/dL (2.5-4.9); Potassium, Blood 6.2 mmol/L (3.5-5.5); Sodium, Blood 127 mmol/L (136-145)
[2020-10-03 12:43] LABS: Source, Urine Catheter
[2020-10-03 12:54] LABS: Appearance, Urine Turbid (Clear); Bilirubin, Urine Neg (Neg); Blood, Urine 5+ (Neg); Color, Urine Yellow (P-Yellow); Glucose Qualitative, Urine 1+ (Neg); Ketones, Urine 1+ (Neg); Leukocyte Esterase, Urine 3+ (Neg); Nitrite, Urine Neg (Neg); Protein, Urine 4+ (Neg); Urobilinogen, Urine NORM (Normal)
[2020-10-03 13:13] LABS: Bacteria Many /hpf; Squamous Epithelial Cells Not Seen /hpf (Few)
[2020-10-03 13:14] LABS: Transitional Epithelial Cells Many /hpf (0-Rare); Yeast/Fungi Urine Many /hpf
[2020-10-03 13:18] LABS: Renal Epithelial Rare /hpf (0-Rare)
--- NOTE | 2020-10-03 13:33 | NUR ---
PT WAS UNDERGOING HER ECHO AND BEGAN FEELING MORE SHORT OF BREATH, SHE CONTINUED TO SAY THAT SHE COULDN'T CATCH HER BREATH. HER SATS WERE RANGING FROM 88-96%. FACE MASK OXYGEN PUT ON, DIDN'T MAKE HER MORE COMFORTABLE, SHE FOUGHT BETWEEN FEELING LIKE IT WAS TOO MUCH AND NOT ENOUGH. IN THE ROOM, ORDERS EKG. PT CONTINUES TO FIGHT FOR BREATH, ASKED FOR BIPAP. AT THIS TIME, SHE IS RESTING MORE COMFORTABLY ON THE BIPAP. SHE ASKED ME TO NOTIFY HER SISTER OF EVERYTHING THAT IS GOING ON, I DID. DR. ANTONY UPDATED AND ORDERS RECEIVED AND GIVEN FROM HIM WELL. BLOOD PRESSURE REMAINS LABILE, MADE AWARE.
--- NOTE | 2020-10-03 13:44 | NUR ---
ECHO REPORT WAS RELAYED FROM TO , SHE HAS A PERICARDIAL EFFUSION THAT REQUIRES PERICARDIALCENTESIS/POSSIBLY A DRAIN. DOES NOT DO THIS AND HAS ASKED FOR A TRANSFER OF THIS PATIENT TO HAVE THIS DONE.
--- NOTE | 2020-10-03 14:00 | NUR ---
DECISION MADE FOR TRANSFER OUT OF FACILITY, GAVE REPORT TO RECEIVING PHYSICIAN. PATIENT TOLD, DISAPPOINTED, BUT UNDERSTANDING.
--- NOTE | 2020-10-03 15:00 | NUR ---
PT PREPARED FOR TRANSPORT, [facility] REMAINS LABILE, READY WITH LEVOPHED AND DOPAMINE TEAM COMES TO TRANSPORT. PATIENT CONTINUES ON BIPAP, SAYS SHE IS BREATHING BETTER WITH THAT. WILL ASSIST TEAM TRANSFERRING PATIENT TO THEIR CARE. DECISION MADE FOR THE RN'S TO GO WITH THE PATIENT AND TRANSPORT TEAM. WILL RECORD NOTES AND PLACE IN CHART UPON RETURN.
== END 2020-10-03 16:00 | disposition short-term general hospital (02) | DRG 871 ==
LOC: ER 03:21 → ICUE 04:23 → ERHOLD 04:23 → ICUE 06:52
PROVIDERS: Emergency Medicine; Internal Medicine; Internal Medicine Nephrology; ADMIT Internal Medicine
PROC: 5A1935Z Respiratory Ventilation, Less than 24 Consecutive Hours (ICD-10-PCS; principal; 2020-10-03)
PROC: 30233N1 Transfusion of Nonautologous Red Blood Cells into Peripheral Vein, Percutaneous Approach (ICD-10-PCS; 2020-10-03)
PROC: 02HV33Z Insertion of Infusion Device into Superior Vena Cava, Percutaneous Approach (ICD-10-PCS; 2020-10-03)
DX: A41.9 Sepsis, unspecified organism (principal); R65.21 Severe sepsis with septic shock; J18.9 Pneumonia, unspecified organism; G92 Toxic encephalopathy; J96.21 Acute and chronic respiratory failure with hypoxia; N17.9 Acute kidney failure, unspecified; E87.1 Hypo-osmolality and hyponatremia; E87.2 Acidosis; N25.81 Secondary hyperparathyroidism of renal origin; I31.4 Cardiac tamponade; E66.9 Obesity, unspecified; N18.30 Chronic kidney disease, stage 3 unspecified; E11.22 Type 2 diabetes mellitus with diabetic chronic kidney disease; J44.9 Chronic obstructive pulmonary disease, unspecified; I12.9 Hypertensive chronic kidney disease with stage 1 through stage 4 chronic kidney disease, or unspecified chronic kidney disease; Z87.891 Personal history of nicotine dependence; Z79.4 Long term (current) use of insulin; Z99.81 Dependence on supplemental oxygen; E87.5 Hyperkalemia; Z89.512 Acquired absence of left leg below knee; E11.51 Type 2 diabetes mellitus with diabetic peripheral angiopathy without gangrene; E78.5 Hyperlipidemia, unspecified; E11.649 Type 2 diabetes mellitus with hypoglycemia without coma; Z68.32 Body mass index [BMI] 32.0-32.9, adult
CPT/HCPCS: 0241U; 36415; 36430; 36569; 36600; 51702; 71045; 80048; 80053; 80069; 81001; 82550; 82803; 82947; 83605; 83735; 83880; 84484; 85018; 85025; 85610; 85730; 86850; 86900; 86901; 86923; 87040; 87086; 87106; 93005; 93010; 93306; 94644; 94660; 96361-59; 96365-59; 96366-59; 96375-59; 99285-25; A9270; C1751; J0610; J0692; J1265; J1815; J2543; J2930; J3370; J3475; J7030; J7050; P9016; P9046; P9059